=== PATIENT | male | born 1935 | race Caucasian/White ===

== ENCOUNTER 2020-12-11 21:07 | Emergency (ER) | payer MEDICARE, SELFPAY ==
--- NOTE | ~2020-12-11 | XR_ITS ---
XR chest 1V 12/11/2020 22:52 Indication: Dyspnea. Status post fall. Procedure: AP view of the chest Comparison: 10/24/2016 Findings: Left basilar airspace disease. Small left pleural effusion. Right lung clear. No pneumothor ax. No acute osseous abnormality. Impression: 1: Left basilar airspace disease which may represent atelectasis or pneumonia. Reviewed, dictated and finalized at location A. Impression: 1: Left basilar airspace disease which may represent atelectasis or pneumonia.
--- NOTE | ~2020-12-11 | XR_ITS ---
XR thoracic spine 3V 12/11/2020 22:52 Indication: Status post fall. Back pain. Procedure: 3 views of the thoracic spine Comparison: CT dated 12/11/2020. Findings: There is mild dextrocurvature of the thoracic spine. Vertebral body heights are maintained. No fracture, subluxation or dislocation. No paraspinal soft tissue abnormality. Impression: 1: No acute fracture. Reviewed, dictated and finalized at location A. Impression: 1: No acute fracture.
--- NOTE | ~2020-12-11 | CT_ITS ---
EXAMINATION: CT cervical spine wo con DATE: 12/11/2020 23:02 INDICATION: Neck pain after fall TECHNIQUE: Computed tomography (CT) of the cervical spine was performed without intravenous contrast. The dose-length product was 475 mGy-cm. Automated exposure control and iterative reconstruction tech nique were employed. COMPARISON: None FINDINGS: There is degenerative disc disease at C3-4, C4-5, C5-6 and C6-7. There is degenerative retr olisthesis at C3-4 with degenerative anterolisthesis at C7-T1. There is moderate-severe multilevel un cinate and to a lesser degree facet degenerative change. Odontoid process within normal limits. Crani overtebral junction within normal limits. There is carotid atherosclerosis. Lung apices are normal. N o significant paraspinal soft tissue abnormality. No evidence for perched facet. IMPRESSION: 1. No acute abnormality of the cervical spine. 2: Severe cervical spondylosis. Reviewed, dictated and finalized at location A.
--- NOTE | ~2020-12-11 | CT_ITS ---
EXAMINATION: CT brain wo con DATE: 12/11/2020 23:02 INDICATION: Status post fall. Headache. TECHNIQUE: Computed tomography (CT) of the head was performed without intravenous contrast. The dose- length product was 605.33 mGy-cm. Automated exposure control and iterative reconstruction technique w ere employed. COMPARISON: CT dated 01/02/2016 FINDINGS: Mild generalized atrophy. There are scattered mild periventricular and subcortical white ma tter changes, most likely related to small vessel ischemic disease (microangiopathy). There is intrac ranial atherosclerosis. No acute intracranial hemorrhage, infarction, mass or mass effect. Mild mucos al thickening of the left frontal sinus. Mastoids are pneumatized. No depressed skull fractures. Midl ine sagittal images are unremarkable. IMPRESSION: 1. No acute intracranial abnormality. 2: Chronic age-related findings. Reviewed, dictated and finalized at location A.
--- NOTE | ~2020-12-11 | CT_ITS ---
EXAMINATION: CT lumbar spine wo con DATE: 12/11/2020 23:03 INDICATION: Low back pain after fall TECHNIQUE: Computed tomography (CT) of the lumbar spine was performed without intravenous contrast. Kimi fernandez dose-length product was 1311.65 mGy-cm. Automated exposure control and iterative reconstruction te aniceto were employed. COMPARISON: None FINDINGS: There are surgical changes consistent with fusion at L4-5. There is degenerative disc disea se at L2-3, L3-4 and L5-S1. There is an acute superior endplate compression fracture of L1 with appro ximately 15% loss of vertebral body height. There is levoscoliosis of the lumbar spine. There is athe rosclerosis of the aorta. Lung bases unremarkable. IMPRESSION: 1. Acute superior endplate compression fracture of L1 with approximately 15% loss of vertebral body h eight. 2: Moderate lumbar spondylosis with fusion at L4-5. Reviewed, dictated and finalized at location A. IMPRESSION: 1. Acute superior endplate compression fracture of L1 with approximately 15% lo ss of vertebral body height. 2: Moderate lumbar spondylosis with fusion at L4-5.
[2020-12-11 21:10] VITALS: PULSE 59; RESP 22; TEMP 36.7
[2020-12-11] MEDS: MORPHINE SULFATE (*CRX) 2 MG/ML INJ IV PUSH (21:54)
[2020-12-11 22:06] LABS: Basophils Percent Auto 0.6 % (0.2-1.2); Eosinophils Absolute Auto 0.1 K/mm3 (0-0.3); Eosinophils Percent Auto 1.9 % (0-4.4); Hematocrit 42.9 % (42.0-52.0); Hemoglobin 13.6 g/dL (14.0-18.0); Immature Granulocyte Absolute 0.21 K/mm3 (0.00-0.031); Lymphocytes Absolute Auto 1.21 K/mm3 (0.9-3.2); Mean Corpuscular HGB Conc 31.7 g/dl (32-36); Mean Corpuscular Hemoglobin 30.4 pg (26-34); Mean Platelet Volume 10.4 fl (7.4-10.4); Monocytes Absolute Auto 0.3 K/mm3 (0.1-0.6); Monocytes Percent Auto 4.7 % (2.6-8.5); Neutrophils Absolute Auto 3.5 K/mm3 (1.3-6.7); Neutrophils Percent Auto 65.8 % (45.5-73.1); Platelet Count Result 161 k/mm3 (150-375); Red Blood Count 4.47 M/mm3 (4.6-6.20); Red Cell Distribution Width 13.8 % (11.5-14.5); White Blood Count 5.3 K/mm3 (4.5-10.0)
[2020-12-11 22:14] VITALS: BP 179/81; PULSE 63; RESP 16; O2SAT 97
[2020-12-11 22:27] LABS: Ethanol 45 mg/dL (<10)
[2020-12-11 22:40] LABS: Alanine Aminotransferase 17 U/L (4-50); Albumin Level 3.9 g/dL (3.5-5.1); Alkaline Phosphatase 58 U/L (38-126); Anion Gap 4 mmol/L (8-16); Aspartate Amino Transferase 55 U/L (17-59); Bilirubin,Total 0.9 mg/dL (0.2-1.3); Blood Urea Nitrogen 27 mg/dL (9-20); Calcium 8.9 mg/dL (8.4-10.2); Carbon Dioxide 31 mmol/L (22-30); Chloride 106 mmol/L (98-107); Estimated CRCL calculation 48 ml/min; Estimated Glomerular Filt Rate 58; Glucose 89 mg/dL (75-110); Potassium 4.5 mmol/L (3.4-5.0); Sodium 141 mmol/L (137-145)
[2020-12-11 22:51] LABS: Troponin I < 0.012 ng/mL (0.000-0.034)
[2020-12-11 23:10] VITALS: BP 165/77; PULSE 65; RESP 16; O2SAT 99
--- NOTE | 2020-12-11 23:51 | ED.FALL ---
HPI - Fall General Chief Complaint: Fall Stated Complaint: fall Time Seen by Provider: 12/11/20 21:16 Source: patient, family, EMS and RN notes reviewed Mode of arrival: EMS Limitations: no limitations History of Present Illness HPI Narrative: Patient is 85 years old white male came to the emergency room by ambulance because of a fall. Patient had some alcohol on board, was in a friend's house, stepping down a step lost his balance and fell down on muddy ground 6 to 7 feet above the ground. Patient denies any loss of consciousness, head or neck injury, complaining of lower back pain. Patient does not take aspirin or any anticoagulant medication. Patient also denies any chest or abdominal pain. MD complaint: fall Related Data Allergies Allergy/AdvReac Type Severity Reaction Status Date / Time ciprofloxacin Allergy Intermediate FACIAL Verified 12/11/20 22:09 SWELLING AND HIVES shellfish derived Allergy Intermediate HIVES AND Verified 12/11/20 22:09 FACIAL SWELLING iodine Allergy Unknown Swelling Verified 12/11/20 22:09 Sulfa (Sulfonamide Allergy Unknown Unknown Verified 12/11/20 22:09 Antibiotics) codeine AdvReac Unknown HIVES AND Verified 12/11/20 22:09 NAUSEA Review of Systems Review of Systems: Narrative: CONSTITUTIONAL: Denies fever, chills, or sweats. EYES: Denies visual changes, redness, or discharge. ENT: Denies rhinorrhea, congestion, sore throat, or otalgia. CARDIOVASCULAR: Denies chest pain, palpitations, or edema. RESPIRATORY: Denies cough or dyspnea. GASTROINTESTINAL: Denies abdominal pain, nausea, vomiting, or diarrhea. GENITOURINARY: Denies dysuria or hematuria. SKIN: Denies rash or itching. MUSCULOSKELETAL: Denies back pain, joint pain, or myalgia. NEUROLOGIC: Denies headache, numbness, or weakness. PSYCHIATRIC: Denies anxiety or depression. [facility] Past Medical History Medical History CKD (chronic kidney disease) Erectile dysfunction Essential tremor Hypothyroidism Lumbar disc disease Family History Family History Mother Patient's mother is , Onset Age: 100 Father Patient's father is Family history of cardiovascular disease Acute myocardial infarction, Onset Age: 57 Sibling Patient's brother is in good health Social History Social History Second hand tobacco smoke exposure: No Smoking end date: 06/05/1965 Alcohol intake: current Exam Narrative: Exam Narrative: General appearance: Well-developed, well-nourished Skin: Normal color Head: Normocephalic, nontraumatic Eyes: Clear conjunctiva ENT: Oropharynx normal, ears normal, nose normal Neck: Supple, nontender Chest and respiratory: Airway patent, no respiratory distress, no accessory muscle use Heart: Regular rate/rhythm Abdomen: Soft, nontender, no organomegaly, quiet bowel sounds Vascular: Normal peripheral pulses, normal capillary refill. Musculoskeletal: Diffuse pain across the lumbar area, no bruises, no swelling, limited range of motion. Neurologic: Alert and oriented ?3, BUSINESS OFFICE COORDINATOR is normal as tested, no gross motor deficit Course Course Emergency Course: Stable Vital Signs Vital signs: Vital Signs Temperature 36.7 C 12/11/20 21:10 Pulse Rate 59 L 12/11/20 21:10 Respiratory Rate 22 H 12/11/20 21:10 Temperature 36.7 C 12/11/20 21:10 Pulse Rate 65 12/11/20 23:10 Respiratory Rate 16 12/11/20 23:10 Blood Pressure 165/77 H 12/11/20 23:10 Pulse Oximetry 99 12/11/20 23:10 MDM - Fall MDM Narrative Med
[2020-12-12] MEDS: MORPHINE SULFATE (*CRX) 2 MG/ML INJ IV PUSH (00:25)
[2020-12-12] MEDS: ONDANSETRON INJ 4 MG/2 ML VIAL IV PUSH (00:25)
[2020-12-12 00:41] VITALS: BP 170/70; PULSE 70; O2SAT 100
== END 2020-12-12 00:34 | disposition home or self-care (01) ==
PROVIDERS: Emergency Provider Emergency Medicine; PCP Family Medicine
DX: S32.018A Other fracture of first lumbar vertebra, initial encounter for closed fracture (principal); N18.9 Chronic kidney disease, unspecified; E03.9 Hypothyroidism, unspecified; Z87.891 Personal history of nicotine dependence; M47.812 Spondylosis without myelopathy or radiculopathy, cervical region; M47.816 Spondylosis without myelopathy or radiculopathy, lumbar region; R91.8 Other nonspecific abnormal finding of lung field; W10.9XXA Fall (on) (from) unspecified stairs and steps, initial encounter
CPT/HCPCS: 36415; 70450; 71045; 72072; 72125; 72131; 80053; 80307; 84484; 85025; 96374; 96375; 99284; J2270; J2405

== ENCOUNTER 2022-03-04 17:51 | Emergency (ER) | payer MEDICARE, SELFPAY ==
[2022-03-04] VITALS (14 sets, daily range): BP systolic 129–188; BP diastolic 66–79; PULSE 44–75; RESP 12–23; TEMP 36.6–36.8; O2SAT 98–100
--- NOTE | ~2022-03-04 | XR_ITS ---
EXAMINATION: XR chest 2V DATE: 03/04/2022 19:51 INDICATION: Cough. TECHNIQUE: Frontal and lateral views of the chest were obtained. COMPARISON: Chest single view 12/11/2020, chest CT 05/16/2017 FINDINGS: There is no pneumonia, pleural effusion, or pneumothorax. The heart size is normal. There a re prominent paracardial fat pads. There is mild chronic anterior wedging of a midthoracic vertebral body. IMPRESSION: 1. No acute cardiopulmonary disease. Reviewed, dictated and finalized at location A.
--- NOTE | 2022-03-04 19:33 | ECG_ITS ---
Measurements Intervals [place] Rate: 49 P: 44 AL: 170 QRS: 2 QRSD: 118 T: 23 QT: 412 QTc: 373 Interpretive Statements SINUS BRADYCARDIA ATRIAL PREMATURE COMPLEX LOW QRS VOLTAGE IN PRECORDIAL LEADS MINIMAL Q WAVES- ANTERIOR LEADS CONSIDER INFERIOR INFARCT, AGE INDETERMINATE BORDERLINE T WAVE ABNORMALITY- ANTERIOR LEADS BASELINE ARTIFACT- I, II, III, AVL, AVF, V1-V6 ABNORMAL ECG NO PREVIOUS ECG AVAILABLE FOR COMPARISON Electronically Signed On 03-04-2022 21:46:59 CDT by Bobby Smiley D.O.
[2022-03-04 19:59] LABS: Basophils Percent Auto 0.4 % (0.2-1.2); Eosinophils Absolute Auto 0.1 K/mm3 (0-0.3); Eosinophils Percent Auto 2.3 % (0-4.4); Hematocrit 40.6 % (42.0-52.0); Hemoglobin 13.2 g/dL (14.0-18.0); Immature Granulocyte Absolute 0.03 K/mm3 (0.00-0.031); Immature Granulocyte Percent A 0.6 % (0-0.5); Lymphocytes Absolute Auto 1.37 K/mm3 (0.9-3.2); Lymphocytes Percent Auto 28.5 % (18.3-44.2); Mean Corpuscular HGB Conc 32.5 g/dl (32-36); Mean Corpuscular Hemoglobin 31.1 pg (26-34); Mean Corpuscular Volume 95.8 fl (80-100); Mean Platelet Volume 9.8 fl (7.4-10.4); Monocytes Absolute Auto 0.5 K/mm3 (0.1-0.6); Monocytes Percent Auto 9.8 % (2.6-8.5); Neutrophils Absolute Auto 2.8 K/mm3 (1.3-6.7); Neutrophils Percent Auto 58.4 % (45.5-73.1); Platelet Count Result 171 k/mm3 (150-375); Red Blood Count 4.24 M/mm3 (4.6-6.20); White Blood Count 4.8 K/mm3 (4.5-10.0)
--- NOTE | 2022-03-04 20:14 | ED.URI ---
HPI - URI/Sore Throat General Chief Complaint: Upper Respiratory Infection Stated Complaint: HTN Time Seen by Provider: 03/04/22 18:57 Source: patient, RN notes reviewed and old records reviewed Mode of arrival: ambulatory Limitations: no limitations History of Present Illness HPI Narrative: This is an 86 year old male with history of hypertension , CAD with stent who presents for evaluation of possible pneumonia. He developed cold symptoms on Monday when he was in [facility]. He states his brother was sick with similar symptoms as well and he was diagnosed with pneumonia. His cough is improving but he is concerned about pneumonia. He had joint pain with his cold symptoms but that has resolved. He denies nausea, vomiting, shortness of breath, leg swelling or diarrhea. He does having intermittent right lower rib pain. Denies history of DVT. He went to urgent care today for evaluation of pneumonia but he was told to come to ER because his systolic BP was 200s. He denies dizziness or headache. He is also bradycardic and he states this normal due to him taking propanolol Related Data Allergies Allergy/AdvReac Type Severity Reaction Status Date / Time ciprofloxacin Allergy Intermediate FACIAL Verified 11/22/21 08:54 SWELLING AND HIVES shellfish derived Allergy Intermediate HIVES AND Verified 11/22/21 08:54 FACIAL SWELLING iodine Allergy Unknown Swelling Verified 11/22/21 08:54 Sulfa (Sulfonamide Allergy Unknown Unknown Verified 11/22/21 08:54 Antibiotics) codeine AdvReac Unknown HIVES AND Verified 11/22/21 08:54 NAUSEA Review of Systems Review of Systems: All systems reviewed & are unremarkable except as noted in HPI and below Constitutional: Constitutional: Denies chills, Denies fatigue and Denies fever(s) ENT: Reports nasal congestion and Denies sore throat Cardiovascular: Cardiovascular: Denies chest pain and Denies radiating jaw, neck or arm pain Respiratory: Respiratory: Reports chest congestion, Reports cough and Denies dyspnea Musculoskeletal: Musculoskeletal: Reports myalgias and Reports arthralgias Neurologic: Denies headache(s) [facility] Past Medical History Medical History CKD (chronic kidney disease) Closed compression fracture of lumbar vertebra Erectile dysfunction Essential tremor Hypothyroidism Lumbar disc disease Family History Family History Mother Patient's mother is , Onset Age: 100 Father Patient's father is Family history of cardiovascular disease Acute myocardial infarction, Onset Age: 57 Sibling Patient's brother is in good health Social History Social History Smoking status: Former smoker Second hand tobacco smoke exposure: No Smoking end date: 06/05/1965 Alcohol intake: current Exam Const: General: no acute distress and alert Nutritional Appearance: well nourished Orientation/consciousness: patient oriented x3 HENMT: Head: normal to inspection Eyes: EOM: EOMs intact bilaterally Chest: Chest palpation & inspection: normal inspection of the chest Resp: Effort & Inspection: normal respiratory effort Auscultation: clear to auscultation bilaterally Cardio: Rate: regular rate Rhythm: regular rhythm Heart sounds: no murmurs GI: GI Palp: Yes Soft to palpation, No Tenderness to palpation present (GI) and No Guarding due to palpation present (GI) Auscultation: normal bowel sounds Back/Spine/Pelvis: Back: no CVA tenderness Skin: General skin exam: normal color Rashes: no rashes Wounds: no wounds Neuro: General: patient oriented x3, moves all extremities and CN's II-XI intact bilaterally Extrem: General: normal to inspection Psych: Mental Status: mental status grossly normal Affect: normal affect Attitude: cooperati
[2022-03-04 20:15] LABS: Alanine Aminotransferase 15 U/L (6-50); Alkaline Phosphatase 67 U/L (38-126); Anion Gap 8 mmol/L (8-16); Aspartate Amino Transferase 37 U/L (17-59); Blood Urea Nitrogen 26 mg/dL (9-20); Carbon Dioxide 28 mmol/L (22-30); Chloride 104 mmol/L (98-107); Estimated Glomerular Filt Rate > 60; Glucose 100 mg/dL (65-110); Potassium 4.5 mmol/L (3.4-5.0); Prothrombin Time 13.1 Seconds (11.1-14.7); Sodium 140 mmol/L (137-145)
[2022-03-04 20:16] LABS: Partial Thromboplastin Time 30.6 SECONDS (22.3-36.8)
[2022-03-04 20:22] LABS: D Dimer 0.53 ug/mL (<0.48)
[2022-03-04 20:36] LABS: Influenza A QL RT-PCR Negative (Negative); Influenza B QL RT-PCR Negative (Negative); SARS-CoV-2 RNA PCR Positive
== END 2022-03-04 21:46 | disposition home or self-care (01) ==
PROVIDERS: Emergency Provider General Practice; PCP Family Medicine
DX: U07.1 COVID-19 (principal); I12.9 Hypertensive chronic kidney disease with stage 1 through stage 4 chronic kidney disease, or unspecified chronic kidney disease; N18.9 Chronic kidney disease, unspecified; E03.9 Hypothyroidism, unspecified; I25.10 Atherosclerotic heart disease of native coronary artery without angina pectoris; Z95.5 Presence of coronary angioplasty implant and graft; Z87.891 Personal history of nicotine dependence; I49.1 Atrial premature depolarization; R94.31 Abnormal electrocardiogram [ECG] [EKG]
CPT/HCPCS: 36415; 71046; 80053; 85025; 85380; 85610; 85730; 87502; 93005; 99283; C9803; U0003; U0005

== ENCOUNTER 2023-01-16 08:45 | Outpatient (CLI) | payer MEDICARE, SELFPAY ==
[2023-01-16 13:06] LABS: Hematocrit 41.7 % (42.0-52.0); Hemoglobin 13.1 g/dL (14.0-18.0); Mean Corpuscular HGB Conc 31.4 g/dl (32-36); Mean Corpuscular Hemoglobin 30.5 pg (26-34); Mean Corpuscular Volume 97.2 fl (80-100); Mean Platelet Volume 10.2 fl (7.4-10.4); Platelet Count Result 181 k/mm3 (150-375); Red Blood Count 4.29 M/mm3 (4.6-6.20); Red Cell Distribution Width 13.7 % (11.5-14.5); White Blood Count 5.1 K/mm3 (4.5-10.0)
[2023-01-16 13:15] LABS: Alanine Aminotransferase 19 U/L (6-50); Albumin Level 3.9 g/dL (3.5-5.1); Alkaline Phosphatase 58 U/L (38-126); Anion Gap 5 mmol/L (8-16); Aspartate Amino Transferase 37 U/L (17-59); Bilirubin,Total 1.1 mg/dL (0.2-1.3); Blood Urea Nitrogen 22 mg/dL (9-20); Calcium 8.7 mg/dL (8.4-10.2); Carbon Dioxide 31 mmol/L (22-30); Chloride 101 mmol/L (98-107); Cholesterol 148 mg/dL (0-200); Estimated Glomerular Filt Rate 58; Glucose 85 mg/dL (65-110); HDL Direct 48 mg/dL; Potassium 4.2 mmol/L (3.4-5.0); Sodium 137 mmol/L (137-145); Triglycerides 81 mg/dL (<150)
[2023-01-16 13:26] LABS: LDL Cholesterol Direct 80 mg/dL
[2023-01-16 13:56] LABS: Hemoglobin A1C 5.5 % (<5.7)
== END 2023-01-16 08:46 | disposition home or self-care (01) ==
PROVIDERS: PCP Family Medicine; Visit Provider Nurse Practitioner
DX: Z13.6 Encounter for screening for cardiovascular disorders (principal); R73.03 Prediabetes; Z13.1 Encounter for screening for diabetes mellitus; N18.9 Chronic kidney disease, unspecified; Z13.29 Encounter for screening for other suspected endocrine disorder; E03.9 Hypothyroidism, unspecified
CPT/HCPCS: 36415; 80053; 80061; 83036; 84443; 85027

== ENCOUNTER 2024-03-29 10:08 | Outpatient (CLI) | payer MEDICARE, SELFPAY ==
[2024-03-29 16:43] LABS: Basophils Percent Auto 0.6 % (0.2-1.2); Eosinophils Absolute Auto 0.1 K/mm3 (0-0.3); Eosinophils Percent Auto 2.5 % (0-4.4); Hematocrit 42.8 % (42.0-52.0); Hemoglobin 13.4 g/dL (14.0-18.0); Immature Granulocyte Absolute 0.01 K/mm3 (0.00-0.031); Immature Granulocyte Percent A 0.2 % (0-0.5); Lymphocytes Percent Auto 28.8 % (18.3-44.2); Mean Corpuscular HGB Conc 31.3 g/dl (32-36); Mean Corpuscular Hemoglobin 31.1 pg (26-34); Mean Corpuscular Volume 99.3 fl (80-100); Mean Platelet Volume 10.4 fl (7.4-10.4); Monocytes Absolute Auto 0.5 K/mm3 (0.1-0.6); Monocytes Percent Auto 9.7 % (2.6-8.5); Neutrophils Absolute Auto 2.8 K/mm3 (1.3-6.7); Neutrophils Percent Auto 58.2 % (45.5-73.1); Platelet Count Result 179 k/mm3 (150-375); Red Blood Count 4.31 M/mm3 (4.6-6.20); Red Cell Distribution Width 13.6 % (11.5-14.5); White Blood Count 4.9 K/mm3 (4.5-10.0)
[2024-03-29 17:17] LABS: Alanine Aminotransferase 14 U/L (6-50); Albumin Level 4.1 g/dL (3.5-5.1); Alkaline Phosphatase 56 U/L (38-126); Anion Gap 9 mmol/L (4-12); Aspartate Amino Transferase 41 U/L (17-59); Bilirubin,Total 0.9 mg/dL (0.2-1.3); Blood Urea Nitrogen 27 mg/dL (9-20); Calcium 8.8 mg/dL (8.4-10.2); Carbon Dioxide 31 mmol/L (22-30); Chloride 101 mmol/L (98-107); Cholesterol 148 mg/dL (0-200); Estimated Glomerular Filt Rate 57; Glucose 97 mg/dL (65-110); HDL Direct 53 mg/dL; Potassium 4.4 mmol/L (3.4-5.0); Sodium 141 mmol/L (137-145); Triglycerides 120 mg/dL (<150)
[2024-03-29 17:32] LABS: LDL Cholesterol Direct 65 mg/dL
[2024-03-29 17:51] LABS: Hemoglobin A1C 5.6 % (<5.7)
== END 2024-03-29 10:09 | disposition home or self-care (01) ==
LOC: ANHGOSHLAB 10:09
PROVIDERS: PCP Family Medicine; Visit Provider Family Medicine
DX: R73.03 Prediabetes (principal); I10 Essential (primary) hypertension; E03.9 Hypothyroidism, unspecified; R78.5 Finding of other psychotropic drug in blood
CPT/HCPCS: 36415; 80053; 80061; 83036; 84443; 85025

== ENCOUNTER 2024-09-26 15:23 | Outpatient (CLI) | payer MEDICARE, SELFPAY ==
--- OUTSIDE RECORDS SUMMARY | 2024-09-26 16:40 | XMS_ITS | Clinical Summary ---
Author Organization [facility] Address [address] [place] [address] Care Team Providers Care Senior Sales Representative Name Role Phone Ying Banerjee MD Unavailable [phone] Sedrick Lynch MD Primary Care Provider [phone] Source Comments [facility],non-owned Affiliates and Associated Physician Practices is amultiple site organization consisting of ambulatory clinics and hospital sitesin [place], [place], [place] and [place]. This disclosure is being madepursuant to the Care Everywhere program and may not contain all information available regarding this patient. Last updated 18.[facility] Allergies Active Allergy Reactions Criticality Noted Date Comments Codeine 05/25/2011 Medications * Be aware that medications may not be up to date on this document. Alwaysverify current medications with the patient. ezetimibe-simvas tatin (VYTORIN) 10-40 MG tablet Acti ve aspirin 325 MG tablet Active tamsulosin CR 24hr (FLOMAX) 0.4 MG capsule Activ e LISINOPRIL PO Active ATENOLOL PO Active levETIRAcetam (KEPPRA) 500 MG tablet Take 1 Tab by mouth 2 times daily. 60 Tab 2 08/26/2011 Active LORazepam (ATIVAN) 0.5 MG tablet Take 1 Tab by mouth every 8 hours as needed for Anxiety. 30 Tab 1 08/26/2011 Active diclofenac sodium (VOLTAREN) 75 MG tablet Take 1 Tab by mouth 2 times daily. 60 Tab 5 10/13/2011 Active Active Problems Problem Noted Date Diagnosed Date Degeneration of lumbar or lumbosacral interverte bral disc 05/25/2011 Family History Relation Name Status Comments Brother Alive healthy Daughter Alive healthy Father (Age 57) heart anahi ck Mother Alive 98 yrs old has final satge of dimentia Son Alive x3 healthy Social History Tobacco Use Types Packs/Day Years Used Date Smoking Tobacco: Never Smokeless Tobacco: Never Alcohol Use Standard Drinks/Week Comments Yes 0 (1 standard drink = 0.6 oz pur e alcohol) sometimes Sex and Gender Information Value Date Recorded Sex Assigned at Not on file Legal Sex Male 8:02 AM LETTUCE TRIMMER Gender Identity Not on file Sexual Orientation Not on file Last Filed Vital Signs Vital Sign Reading Time Taken Comments Blood Pressure 103/70 08/26/2011 9:06 AM CDT Pulse 56 07/29/2011 9:04 AM LETTUCE TRIMMER Temperature - - Respiratory Rate - - Oxygen Saturation - - Inhaled Oxygen Concentration - - Weight 84.4 kg (186 lb) 08/26/2011 9:06 AM CDT Height 188 cm (6' 2 ) 08/26/2011 9:06 AM CDT Body Mass Index 23.88 08/26/2011 9:06 AM CDT Plan of Treatment Health Maintenance Due Date Last Done Comments DTAP/TDAP/TD VACCINES (1 - Tdap) 1954 PNEUMOCOCCAL VACCINE 50+ (1 of 1 - PCV) 1987 ZOSTER VACCINE (1 of 2) 1987 Respiratory Syncytial Virus (RSV) Vaccine Pt: or over 60 yrs (1 - 1-dose 75+ series) 2012 COVID-19 VACCINE ( - 2023-2 5 season) 2024 DEPRESSION SCREENING 06/05/2024 MEDICARE AWV CALENDAR YEAR 2024 INFLUENZA VACCINE (Season Ended) 2025 HEPATITIS B VACCINE Aged Out No longe r eligible based on patient's age to complete this topic HIB VACCINE Aged Out No longer eligi ble based on patient's age to complete this topic HPV VACCINE Aged Out No longer eligi ble based on patient's age to complete this topic MENINGOCOCCAL (Group B) VACC INE SHARED DECISION-MAKING Aged Out No longer eligibl e based on patient's age to complete this topic MENINGOCOCCAL GROUPS A/C/Y/W VACCINE Aged Out No longer eligible b ased on patient's age to complete this topic Insurance [facility] [facility] MEDICARE ADV [facility] MEDICARE ADV Care Teams Senior Sales Representative Relationship Specialty Start Date End Date Sedrick Lynch MD [address] [place] [address] PCP - General 06/12/18 Ying Banerjee MD [address] [address] Neurology 08/26/11
--- OUTSIDE RECORDS SUMMARY | 2024-09-26 16:40 | XMS_ITS | Clinical Summary ---
Author Organization [facility] [address] Address [address] [place] [address] Care Team Providers Care Registered Nurse Behavioral Health Name Role Phone Vipul Morgan MD Primary Care Provider [phone] Allergies Active Allergy Reactions Criticality Noted Date Comments Ciprofloxacin Swelling Medium Codeine Hives,Nausea & Vomiting Medium 05/25/2011 Shellfish Derived Swelling Medium Medications propranolol (INDERAL) 80 mg tabletIndicatio ns:for tremors and bp medication Take 1 tablet (80 mg total) by mouth daily Active levothyroxine sodium (TIROSINT) 50 mcg capsuleIndicati ons:thyroid Take 1 capsule (50 mcg total) by mouth daily Active ezetimibe-simva statin (VYTORIN) 10-40 mg per tabletIndicatio ns:cholestrol Take 1 tablet by mouth nightly Active naproxen (ALEVE) 220 mg tablet Take by mouth 2 (two) times a day with meals Active irbesartan (AVAPRO) 150 mg tablet Take 1 tablet (150 mg total) by mouth daily 2 Active nitroglycerin (NITROSTAT) 0.[address] 1 tablet (0.4 mg total) under the tongue every 5 (five) minutes as needed for chest pain May repeat dose q 5 min, up to 3 doses total 30 tablet 2 3 Active cyclobenzaprine (FLEXERIL) 5 mg tablet Take 1 tablet (5 mg total) by mouth 3 (three) times a day as needed for muscle spasms 30 tablet 3 09/10/19 25 Discontinu ed(Therapy completed) Active Problems Problem Noted Date Diagnosed Date Angina pectoris, unspecified 06/21/2022 Closed wedge compression fra cture of L1 vertebra with routine healing 12/21/2020 Sensorineural hearing loss, bilateral 02/19/2018 Spinal stenosis of lumbar re gion with neurogenic claudication 09/25/2017 Coronary artery disease invo lving [place] coronary artery of [place] heart without angina pectoris 03/28/2017 History of coronary artery stent placement 03/28 Dizziness 08/15/2016 Hearing loss 10/22/2014 Impacted cerumen 04/05/2013 Degeneration of lumbar or lumbosacral interverte bral disc 05/25/2011 Resolved Problems Problem Noted Date Diagnosed Date Resolved Date History of coronary artery stent placement 04/03/2018 04/25/2019 Encounters Date Type Department Care Team Description 09/09/2024 8:30 AM CDT Office Visit [facility] Cardiology [address] [place] [address] Vipul Lucero MD History of coronary artery stent placement (Primary Dx) 09/04/2024 10:30 AM CDT Office Visit [facility] Movement Disorders [address] [place] [address] Advanced Medicine 7th [place] [address] Hank Macias MD Tremor 09/04/2024 Documentation [facility] Movement Disorders [facility] Medicine [facility] [place] [address] [place] Frost, [facility] DBS/FUS Packet from Last 3 Months Immunizations Immunization Administration Dates Next Due Influenza, Quadrivalent, Hig h Dose, Preservative Free, Intrr 02/23/2022,03/31/2020 Influenza, Quadrivalent, Rec ombinant, Egg Free, Preservative Free, Intramuscular 06/01/2021 Influenza, Quadrivalent, Split, Intramuscular Influenza, Trivalent, High D ose, Split, Preservative Free, Intramuscular 04/23/2018 Pneumococcal Conjugate PCV 13 05/25/2018 Pneumococcal, Unspecified 06/05/2016 TD Preservative Free 12/04/2011 Tdap 01/02/2016 Surgical History Surgery Date Site/Laterality Comments MICRODISCECTOMY LUMBAR 2006, 2008 Medical History Medical History Date Comments Hx Other Medical dyslipidemia Lumbar stenosis BPH (benign prostatic hyperplasia) Tremor Social History Tobacco Use Types Packs/Day Years Used Date Smoking Tobacco: Former Smokeless Tobacco: Never Tobacco Cessation:Counseling Given: Not Answered Comments:smoked for four years Alcohol Use Standard Drinks/Week Comments Yes 5 (1 standard drink = 0.6 oz pur e alcohol) AUDIT-C Answer Date Recorded Q1: How often do you have a drink containing alc ohol? 2-3 times a week 10/10/2022 Q2: How many drinks containi ng alcohol do you have on a typical day when you are drinking? 1 or 2 10/10/2022 Q3: How often do you have si x or more drinks on one occasion? Never 10/10/2022 Sex and Gender Information Value Date Recorded Sex Assigned at Not on file Legal Sex Male 8:40 AM BUSINESS OFFICE ASSOCIATE Gender Identity Not on file Sexual Orientation Not on file Obstetrics History Last Filed Vital Signs Vital Sign Reading Time Taken Comments Blood Pressure 118/60 09/09/2024 8:08 AM CDT Pulse 46 09/09/2024 8:08 AM CDT Temperature 36.7 C (98.1 F) 11/22/2017 11:41 AM CDT Respiratory Rate 20 03/04/2022 5:12 PM CDT Oxygen Saturation 98% 09/09/2024 8:08 AM CDT Inhaled Oxygen Concentration - - Weight 88.1 kg (194 lb 4.8 oz) 09/09/2024 8:08 A M CDT Height 188 cm (6' 2 ) 09/09/2024 8:08 AM CDT Body Mass Index 24.95 09/09/2024 8:08 AM CDT Plan of Treatment Health Maintenance Due Date Last Done Comments Depression Screening 1935 Fall Risk Assessment 1935 Hepatitis B Screening 1955 Zoster Vaccine (1 of 2) 1987 Well Visit 65+ 2002 Pneumococcal vaccine 65+ (2 of 2 - PPSV23) 05/25/2019 05/25/2018, 06/05/2016 Covid-19 Vaccine (2023-2 5 season) 2024 02/23/2022, 12/01/2021, 02/27/2021, Additional history exists Influenza Vaccine (Season Ended) 2025 02/23/2022, 06/01/2021, 03/31/2020, Additional history exists DTaP/Tdap/Td Vaccine (2 - Td or Tdap) 01/01/2026 01/02/2016, 12/04/2011 Medical Devices Implanted Type Area Biometrics Technician Device Identifier Shelf Expiration Date Model / Serial / Lot [employer] [id number] Acupac Allograft Frozen Graft 25cc Bone Cancellous - [id number] - [id number] Implanted:Qty: 1 on 11/21/2017 by Nixon Castle MD at [facility] N/A: Spine Lumbar [employer] 09/06/2019 [id number] / [id number] / [employer] [id number] Creo 7.5mm 50mm Cannulated Modular Spine Screw Bone - [id number] Implanted:Qty: 4 on 11/21/2017 by Nixon Castle MD at [facility] N/A: Spine Lumbar [employer] [id number] / / Mis Nitrol Tulip Implanted:Qty: 4 on 11/21/2017 by Nixon Castle MD at [facility] N/A: Spine Lumbar [employer] [id number] / / Mis Locking Cap Implanted:Qty: 4 on 11/21/2017 by Nixon Castle MD at [facility] N/A: Spine Lumbar [employer] [id number] / / [employer] [id number] Creo Mis 5.5mm 50mm Curve Flex Spinal Titanium - [id number] Implanted:Qty: 2 on 11/21/2017 by Nixon Castle MD at [facility] N/A: Spine Lumbar [employer] [id number] / / [employer] 1124.1232 Altera [id number] 15d Spacer Spinal - [id number] Implanted:Qty: 1 on 11/21/2017 by Nixon Castle MD at [facility] N/A: Spine Lumbar [employer] 1124.1232 / / Insurance [employer] MEDICARE [employer] MEDICARE [employer] MEDICARE Advance Directives For more information, please contact: [phone] * Full Code (Latest Code Status on File) Date Activated Date Inactivated Comments 11/21/2017 5:51 PM 11/22/2017 7:37 PM Care Teams Registered Nurse Behavioral Health Relationship Specialty Start Date End Date Vipul Morgan MD PCP - General Family Medicine 10/18/22
--- OUTSIDE RECORDS SUMMARY | 2024-09-26 16:40 | XMS_ITS | Referral Summary ---
Author Organization [facility] [address] [place] [address] [address] [place] [address] Care Team Providers Care Special Shopper Name Role Phone Vipul Morgan MD Primary Care Provider [phone] Encounters Date Type Department Care Team Description 09/09/2024 8:30 AM CDT Office Visit [facility] Cardiology [address] [place] [address] Vipul Lucero MD History of coronary artery stent placement (Primary Dx) 09/04/2024 Documentation [facility] Movement Disorders [address] [place] [phone] [place] Frost, [facility] DBS/FUS Packet 09/04/2024 10:30 AM CDT Office Visit [facility] Movement Disorders [address] [place] [phone] Hank Macias MD Tremor from Last 3 Months Allergies Active Allergy Reactions Criticality Noted Date [...] claudication 09/25/2017 Coronary artery disease invo lving [place] coronary artery of [place] heart without angina pectoris 03/28/2017 History of coronary artery stent placement 03/28 Dizziness 08/15/2016 Hearing loss 10/22/2014 Impacted cerumen 04/05/2013 Degeneration of lumbar or lumbosacral interverte bral disc 05/25/2011 Resolved Problems Problem Noted Date Diagnosed Date Resolved Date History of coronary artery stent placement 04/03/2018 04/25/2019 Immunizations Immunization Administration Dates Next Due Influenza, Quadrivalent, Hig h Dose, Preservative Free, Intrr 02/23/2022,03/31/2020 Influenza, Quadrivalent, Rec ombinant, Egg Free, Preservative Free, Intramuscular 06/01/2021 Influenza, Quadrivalent, Split, Intramuscular Influenza, Trivalent, High D ose, Split, Preservative Free, Intramuscular 04/23/2018 Pneumococcal Conjugate PCV 13 05/25/2018 Pneumococcal, Unspecified 06/05/2016 TD Preservative Free 12/04/2011 Tdap 01/02/2016 Social History Tobacco Use Types Packs/Day Years [...] on file 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 Gender Identity Not on file Sexual Orientation [...] 09/09/2024 8:08 AM CDT Plan of Treatment Not on file Medical Devices Implanted Type Area Dock Pumper Device Identifier Shelf Expiration Date Model / Serial / Lot [employer] [id number] Acupac Allograft Frozen Graft 25cc Bone Cancellous - [id number] - [id number] Implanted:Qty: 1 on 11/21/2017 by Nixon Castle MD at [facility] N/A: Spine Lumbar [employer] 09/06/2019 [id number] / [id number] / [employer] [id number] Creo 7.5mm 50mm Cannulated Modular Spine Screw Bone - [id number] Implanted:Qty: 4 on 11/21/2017 by Nixon Castle MD at [facility] N/A: Spine Lumbar [employer] [id number] / / Mis Nitrol Tulip Implanted:Qty: 4 on 11/21/2017 by Nixon Castle MD at [facility] N/A: Spine Lumbar [employer] [id number] / / Mis Locking Cap Implanted:Qty: 4 on 11/21/2017 by Nixon Castle MD at [facility] N/A: Spine Lumbar [employer] [id number] / / [employer] [id number] Creo Mis 5.5mm 50mm Curve Flex Spinal Titanium - [id number] Implanted:Qty: 2 on 11/21/2017 by Nixon Castle MD at [facility] N/A: Spine Lumbar [employer] [id number] / / [employer] 1124.1232 Altera [id number] 15d Spacer Spinal - [id number] Implanted:Qty: 1 on 11/21/2017 by Nixon Castle MD at [facility] N/A: Spine Lumbar [employer] 1124.1232 / / Insurance [employer] MEDICARE AET[employer] MEDICARE [facility] MEDICARE Advance Directives For more information, please contact: [phone] * Full Code (Latest Code Status on File) Date Activated Date Inactivated Comments 11/21/2017 5:51 PM 11/22/2017 7:37 PM Care Teams Special Shopper Relationship Specialty Start Date End Date Vipul Morgan MD PCP - General Family Medicine 10/18/22
--- OUTSIDE RECORDS SUMMARY | 2024-09-26 16:40 | XMS_ITS | Encounter Summary ---
Author Organization [facility] Address [address] [place] [address] Care Team Providers Care Skiver Counter Name Role Phone Ying Banerjee MD Unavailable [phone] Sedrick Lynch MD Primary Care Provider [phone] Encounter Details Date Type Department Care Team (Late st Contact Info) Description 11/30/2022 Lab Requisition [facility] [address] [place] [address] Keo Cook MD [address] [place] [address] Social History Tobacco Use Types Packs/Day Years Used Date Smoking Tobacco: Never Smokeless Tobacco: Never Alcohol Use Standard Drinks/Week Comments Yes 0 (1 standard drink = 0.6 oz pur e alcohol) sometimes Sex and Gender Information Value Date Recorded Sex Assigned at Not on file 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 Gender Identity Not on file Sexual Orientation Not on file documented as of this encounter Plan of Treatment Not on file documented as of this encounter Procedures Procedure Name Priority Date/Time Associated Diagnosis Comments DERMATOPATHOLOGY Routine 11/29/2022 12:0 0 AM CDT documented in this encounter Results * DERMATOPATHOLOGY (11/29/2022 12:00 AM CDT) Case Report Dermatopathology Report Case: [id number] Authorizing Provider: Keo Cook MD Collected: 11/29/2022 12:00 AM Ordering Location: [facility] DermPath Lab Received: 11/30/2022 02:22 PM Pathologist: Christi Velazquez MD Specimens: A) - Skin, right cheek ant to right earlobe B) - Skin, top right shoulder 4:54 PM T DERMATOPATHOLOGY LABORATORY Final Diagnosis Specimen A. 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 The specimen consists of a shave biopsy measuring 13x6x1 mm. Jar 0. Specimen B: Received is one formalin filled container labeled with the patient's name and designated top right shoulder. The specimen consists of a shave biopsy measuring 71m05f7 mm. Jar 0. 4:54 PM T DERMATOPATHOLOGY LABORATORY Microscopic Description Specimen A. SKIN, right cheek ant to right earlobe: The epidermis shows parakeratosis, full thickness disorderly maturation of keratinocytes, mitoses at different levels, and dyskeratotic cells. In some foci, there is loss of cohesion between the neoplastic cells, as well as individual dyskeratotic cells that lack intercellular bridges. There is adjacent epidermal hyperplasia with disorderly maturation of keratinocytes with nuclear pleomorphism confined to the lower half of the epidermis. Specimen B. SKIN, top right shoulder: Within the dermis there are aggregates of basaloid cells with a high nuclear to cytoplasmic ratio and peripheral palisading. 4:54 PM CDT DERMATOPATHOLOGY LABORATORY Disclaimer An external and internal positive and negative controls are appropriate for the histochemical, immunohistochemical and immunofluorescence stain(s) in this case (if any), except where stated explicitly. The performance characteristics of the stain(s) cited in this report were developed and its performance characteristic determined by the Dermatopathology Laboratory at [facility], directed by Dr. Stephie Carlos. These tests need not be, and therefore are not, approved by the [place] Food and Drug Administration. The tests are used for clinical purposes. Billing Codes Specimen Charges Stain Charges 24927 46660 1 1 3 4:54 PM CDT DERMATOPATHOLOGY LABORATORY Embedded Images 3 4:54 PM CDT DERMATOPATHOLOGY LABORATORY Pathology/Cytology TISSUE SPECIMEN FROM SKIN / Unknown 11/29/2022 11/30/2022 2:22 PM CDT Miscellaneous samples (specimen) TISSUE SPECIMEN FROM SKIN / Unknown 11/29/2022 11/30/2022 2:22 PM CDT Keo Cook MD LAB - PATHOLOGY/CYTOLOGY ORD ERABLES Final Result DERMATOPATHOLOGY LABORATORY [facility] - Department of Dermatology [facility] Specialized Medicine [address] [place] [address], [address] [phone] documented in this encounter Visit Diagnoses Not on filedocumented in this encounter Care Teams Skiver Counter Relationship Specialty Start Date End Date Sedrick Lynch MD [address] [place] [address] PCP - General 06/12/18 [place] [address] [place] [address] Neurology 08/26/11 documented as of this encounter
[2024-09-26 20:04] LABS: Alanine Aminotransferase 15 U/L (6-50); Albumin Level 4.1 g/dL (3.5-5.1); Alkaline Phosphatase 59 U/L (38-126); Anion Gap 5 mmol/L (4-12); Aspartate Amino Transferase 34 U/L (17-59); Blood Urea Nitrogen 32 mg/dL (9-20); Calcium 9.2 mg/dL (8.4-10.2); Carbon Dioxide 32 mmol/L (22-30); Chloride 102 mmol/L (98-107); Estimated Glomerular Filt Rate 55; Glucose 93 mg/dL (65-110); Potassium 4.8 mmol/L (3.4-5.0); Sodium 139 mmol/L (137-145)
[2024-09-26 21:00] LABS: Hemoglobin A1C 5.6 % (<5.7)
== END 2024-09-26 15:24 | disposition home or self-care (01) ==
LOC: ANHGOSHLAB 15:24
PROVIDERS: PCP Family Medicine; Visit Provider Family Medicine
DX: E03.9 Hypothyroidism, unspecified (principal); R73.03 Prediabetes
CPT/HCPCS: 36415; 80053; 83036; 84443

== ENCOUNTER 2024-10-14 06:36 | Outpatient (CLI) | payer MEDICARE, SELFPAY ==
--- NOTE | ~2024-10-14 | MR_ITS ---
MRI of the lumbar spine Clinical History: L1 compression fracture Technique: Axial T2-weighted images, and sagittal T1-weighted, T2-weighted, and T2 fat-sat images wer e acquired. Findings: Moderate L1 compression fractures present, with loss of height but no marrow edema. There i s posterior and interbody fusion at L4-L5, bilateral rods and transpedicular screws, as well as disc fusion device. No acute fracture seen. No suspicious bone marrow signal abnormality. At L1-L2, there is moderate to advanced degenerative disc narrowing. There is advanced facet arthropa thy. There is mild to moderate central canal stenosis/thecal sac compression, especially on the left side. There is mild right neural foraminal narrowing. Left neural foramen preserved. At L2-L3, there is severe degenerative disc narrowing. Disc bulge and advanced facet arthropathy resu lt in severe spinal canal stenosis/thecal sac compression. There is moderate left neural foraminal na rrowing, and minimal right neural foraminal narrowing. At L3-L4, there is advanced degenerative disc narrowing. Disc bulge and severe facet arthropathy resu lt severe spinal canal stenosis/thecal sac compression. There is moderate bilateral neural foraminal narrowing. At L4-L5, there is advanced facet arthropathy. No alex central canal stenosis. There is probable mod erate right neural foraminal narrowing and mild left neural foraminal narrowing. At L5-S1, there is advanced degenerative disc narrowing. There is minimal disc bulge and severe facet arthropathy. No central canal stenosis. There is severe bilateral neural foraminal conference. Paravertebral soft tissues are otherwise unremarkable. Impression: Chronic L1 compression fracture with no marrow edema. Postoperative change from L4 to L5, as detailed above. Severe degenerative spondylosis, as detailed above with multilevel spinal canal stenosis and neural f oraminal narrowing. Reviewed, dictated and finalized at [facility]. Impression: Chronic L1 compression fracture with no marrow edema. Postoperative change from L4 to L5, as detailed above. Severe degenerative spondylosis, as detailed above with multilevel spinal canal stenosis and neural foraminal narrowing.
--- OUTSIDE RECORDS SUMMARY | 2024-10-14 06:40 | XMS_ITS | Clinical Summary ---
Author Organization [facility] Address [address] [place] [address] Care Team Providers Care Global Ceo Name Role Phone Ying Banerjee MD Unavailable [phone] Sedrick Lynch MD Primary Care Provider [phone] Source Comments [facility],non-owned Affiliates and Associated Physician Practices is amultiple site organization consisting of ambulatory clinics and hospital sitesin [place], [place], [place] and [place]. This disclosure is being madepursuant to the Care Everywhere program and may not contain all information available regarding this patient. 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
--- OUTSIDE RECORDS SUMMARY | 2024-10-14 06:40 | XMS_ITS | Continuity of Care Document ---
Author Organization [employer] [facility] [facility] Address [address] Echevarria [address] [place] [phone] Phone Care Team Providers Care Hematology Technician Name Role Phone Lorne Gardner MD Unavailable [...] No Charge Refraction IOLMaster IOLMaster Office/outpatient Visit, [facility] Advance Directives Directive Yes / No Effective Date File Name No Information Encounters Encounter Description Practice Location Reason(s) For Visit Diagnoses Date Provider Providers Copied on Encounter [facility] [place] [facility], [address] [facility] [[email or web address]][address], [place], [place], [address], tel:[phone] SEC Adebayo THAO Professional Post-Op (chief complaint) Surgery follow-up examination Jj Pradhan. [address] [facility] [place], [place], [address], [place]. tel:[phone] Referring Provider: Nimisha Gallardo OD, [address] [facility], [place], [address]. tel:[phone] [facility], [address], [place], [place], [address], [place] tel:[phone] SEC Adebayo THAO Professional 1 wk CE PO (chief complaint) Surgery follow-up examination Jj Pradhan. [address] [facility] [place], [place], [address], [place]. tel:[phone] Referring Provider: Nimisha Gallardo OD, [address] [facility], [place], [address]. tel:[phone] [facility], [address], [place], [place], [address], [place] tel:[phone] SEC Adebayo THAO Professional Post-Op (chief complaint) Encounter for examination following surgery Aug-2 3-201 7 Master Estevez. [address] [facility], [address], [place], [place], [address], [place]. tel:[phone] Referring Provider: Nimisha Gallardo OD, [address] [facility], [place], [address]. tel:[phone] [facility], [address], [place], [place], [address], [place] tel:[phone] [facility] No Information Aug-2 2-201 7 Jj Pradhan. [address] [facility], [address], [place], [place], [address], [place]. tel:[phone] Referring Provider: Nimisha Gallardo OD, [address] [facility], [place], [address]. tel:[phone] [facility], [address], [place], [place], [address], [place] tel:[phone] SEC Adebayo THAO Professional 2 week post op (chief complaint) No Information Aug- 0-201 7 Jj Pradhan. [address], [place], [place], [address], [place]. tel:[phone] Referring Provider: Nimisha Gallardo OD, [address] [facility], [place], [address]. tel:[phone] [facility], [address], [place], [place], [address], [place] tel:[phone] SEC [place] Professional Post-Op (chief complaint) No Information 7 Jj Pradhan. [address] [facility], [address] [place], [address], [place]. tel:[phone] Referring Provider: Nimisha Gallardo OD, [address] [facility], [place], [address]. tel:[phone] [facility], [address], [place], [place], [address], [place] tel:[phone] SEC [place] Professional Post-Op (chief complaint) No Information 7 Brown Abigail. [address] [place], [address], [place]. tel:[phone] Referring Provider: Nimisha Gallardo OD, [address] [facility], [place], [address]. tel:[phone] [facility], [address], [place], [place], [address], [place] tel:[phone] [facility] No Information 7 Jj Pradhan. [address] [facility], [address] [place], [address], [place]. tel:[phone] Referring Provider: Nimisha Gallardo OD, [address], [place], [address]. tel:[phone] [facility], [address], [place], [place], [address], [place] tel:[phone] SEC [facility] No Information 7 Jj Pradhan. [address] [facility], [address] [place], [address], [place]. tel:[phone] [facility], [address], [place], [place], [address], tel:[phone] SEC [place] Professional Testing only (chief complaint) No Information 3 6 Jj Pradhan. [address] [employer], [address] [place], [place], [address], . tel:[phone] Referring Provider: Nimisha Gallardo OD, [address] [facility], [place], [address]. tel:[phone] Office/outpat ient Visit, [facility], [address], [place], [place], [address], tel:[phone] SEC [place] Professional Cataract evaluation (chief complaint) No Information 6 Jj Pradhan. [address] [employer], [facility] [place], [address], [place]. tel:[phone] Referring Provider: Nimisha Gallardo OD, [address] [facility], [place], [address]. tel:[phone] [facility], [address], [place], [place], [address], [place] tel:[phone] SEC [place] Professional No Information 6 Master Estevez. [address] [employer], [facility] [place], [place], [address], [place]. tel:[phone] Family History Family Member Type Diagnosis Age [...] Referral Referred To: YORDY BADILLO [address] [place], [place], [id number] Ordered: Referrals: Ophthalmology. YORDY BADILLO. Evaluate and [...] MD on May 24 at 8:30am in [place]. *Nimisha Gallardo, OD referral*Possible shugarcaine and Malyugin [...]
--- OUTSIDE RECORDS SUMMARY | 2024-10-14 06:40 | XMS_ITS | Encounter Summary ---
Author Organization [facility] Address [address] [facility] [place] [address] Care Team Providers Care Director Advertising Name Role Phone Ying Banerjee MD Unavailable [phone] Sedrick Lynch MD Primary Care Provider [phone] Encounter Details Date Type Department Care Team (Late st Contact Info) Description 11/30/2022 Lab Requisition [facility] [address] [facility] [place] [address] Keo Cook MD [address] [place] [address] Social History Tobacco Use Types Packs/Day Years Used Date Smoking Tobacco: Never Smokeless Tobacco: Never Alcohol Use Standard Drinks/Week Comments Yes 0 (1 standard drink = 0.6 oz pur e alcohol) sometimes Sex and Gender Information Value Date Recorded Sex Assigned at Not on file 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 Gender Identity Not on file Sexual Orientation Not on file documented as of this encounter Plan of Treatment Not on file documented as of this encounter Procedures Procedure Name Priority Date/Time Associated Diagnosis Comments DERMATOPATHOLOGY Routine 11/29/2022 12:0 0 AM CDT documented in this encounter Results * DERMATOPATHOLOGY (11/29/2022 12:00 AM CDT) Case Report Dermatopathology Report Case: [id number] Authorizing Provider: Keo Cook MD Collected: 11/29/2022 12:00 AM Ordering Location: [facility] Lab Received: 11/30/2022 02:22 PM [...] specimen consists of a shave biopsy measuring 32f21k6 mm. Jar 0. 4:54 PM T DERMATOPATHOLOGY [...] characteristic determined by the Dermatopathology Laboratory at [facility], directed by Dr. Stephie Carlos. These tests need not be, and therefore are not, approved by the [place] Food and Drug Administration. The tests are used for clinical purposes. Billing Codes Specimen Charges Stain Charges 41965 [id number] 1 1 3 4:54 PM CDT DERMATOPATHOLOGY LABORATORY Embedded Images 3 4:54 PM CDT DERMATOPATHOLOGY LABORATORY Pathology/Cytology TISSUE SPECIMEN FROM SKIN / Unknown 11/29/2022 11/30/2022 2:22 PM CDT Miscellaneous samples (specimen) TISSUE SPECIMEN FROM SKIN / Unknown 11/29/2022 11/30/2022 2:22 PM CDT Koe Cook MD LAB - PATHOLOGY/CYTOLOGY ORD ERABLES Final Result DERMATOPATHOLOGY LABORATORY [facility] - Department of Dermatology [facility] [address] [place] [address], [address] [phone] documented in this encounter Visit Diagnoses Not on filedocumented in this encounter Care Teams Director Advertising Relationship Specialty Start Date End Date Sedrick Lynch MD [address] [place] [address] PCP - General 06/12/18 [place] [address] [place] [address] Neurology 08/26/11 documented as of this encounter
--- OUTSIDE RECORDS SUMMARY | 2024-10-14 06:40 | XMS_ITS | Referral Summary ---
Author Organization [facility] [address] [place] [address] [address] [place] [address] Care Team Providers Care Client Technologies Analyst Name Role Phone Vipul Morgan MD Primary Care Provider [phone] Encounters Date Type Department Care Team Description 09/09/2024 8:30 AM CDT Office Visit [facility] Cardiology [address] [facility] [address] [place] [address] Vipul Lucero MD History of coronary artery stent placement (Primary Dx) 09/04/2024 Documentation [facility] Movement Disorders [address] [place] [phone] [place] Frost, DARWIN DBS/FUS Packet 09/04/2024 10:30 AM CDT Office Visit [facility] Movement Disorders [address] [place] [phone] Hank Macias MD Tremor from Last 3 [...] tablet (150 mg total) by mouth daily 01/28/2022 Active nitroglycerin (NITROSTAT) 0.[address] 1 tablet (0.4 mg total) under the tongue every 5 (five) minutes as needed for chest pain May repeat dose q 5 min, up to 3 doses total 30 tablet 2 06/21/2022 Active Active Problems Problem Noted Date Diagnosed Date Angina pectoris, unspecified 06/21/2022 Closed wedge compression fra cture of L1 vertebra with routine healing 12/21/2020 Sensorineural hearing loss, bilateral 02/19/2018 Spinal stenosis of lumbar re gion with neurogenic claudication 09/25/2017 Coronary artery disease invo lving [place] coronary artery of [place] heart without angina pectoris 03/28/2017 History of [...] on file 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 Gender Identity Not on file Sexual Orientation [...] on file Medical Devices Implanted Type Area On Site Services Specialist Device Identifier Shelf Expiration Date Model / Serial / Lot [employer] [id number] Acupac Allograft Frozen Graft 25cc Bone Cancellous - [id number] - [id number] Implanted:Qty: 1 on 11/21/2017 by Nixon Castle MD at [facility] N/A: Spine Lumbar [employer] 09/06/2019 [id number] / [id number] / [employer] 1067.4750 Creo 7.5mm 50mm Cannulated Modular Spine Screw Bone - [id number] Implanted:Qty: 4 on 11/21/2017 by Nixon Castle MD at [facility] N/A: Spine Lumbar [employer] [id number] / / Mis Nitrol Tulip Implanted:Qty: 4 on 11/21/2017 by Nixon Castle MD at [facility] N/A: Spine Lumbar [employer] [id number] / / Mis Locking Cap Implanted:Qty: 4 on 11/21/2017 by Nixon Castle MD at [facility] N/A: Spine Lumbar [employer] [id number] / / [employer] [id number] Creo Mis 5.5mm 50mm Curve Flex Spinal Titanium - [id number] Implanted:Qty: 2 on 11/21/2017 by Nixon Castle MD at [facility] N/A: Spine Lumbar [employer] [id number] / / [employer] 1124.1232 Altera [id number] 15d Spacer Spinal - [id number] Implanted:Qty: 1 on 11/21/2017 by Nixon Castle MD at [facility] N/A: Spine Lumbar [employer] 1124.1232 / / Insurance [facility] MEDICARE Kupon[employer]id MEDICARE AET[employer] MEDICARE Advance Directives For more information, please contact: [phone] * Full Code (Latest Code Status on File) Date Activated Date Inactivated Comments 11/21/2017 5:51 PM 11/22/2017 7:37 PM Care Teams Client Technologies Analyst Relationship Specialty Start Date End Date Vipul Morgan MD PCP - General Family Medicine 10/18/22
--- OUTSIDE RECORDS SUMMARY | 2024-10-14 06:40 | XMS_ITS | Clinical Summary ---
Author Organization [facility] [address] Address [address] [place] [address] Care Team Providers Care Senior Stack Engineer Name Role Phone Vipul Morgan MD Primary Care Provider [phone] Allergies Active Allergy Reactions Criticality Noted Date [...] claudication 09/25/2017 Coronary artery disease invo lving [place] coronary artery of [place] heart without angina pectoris 03/28/2017 History of coronary artery stent placement 03/28 Dizziness 08/15/2016 Hearing loss 10/22/2014 Impacted cerumen 04/05/2013 Degeneration of lumbar or lumbosacral interverte bral disc 05/25/2011 Resolved Problems Problem Noted Date Diagnosed Date Resolved Date History of coronary artery stent placement 04/03/2018 04/25/2019 Encounters Date Type Department Care Team Description 09/09/2024 8:30 AM CDT Office Visit [facility] Cardiology [address] [place] [address] Vipul Lucero MD History of coronary artery stent placement (Primary Dx) 09/04/2024 10:30 AM CDT Office Visit [facility] Movement Disorders [facility] [address] [place] [address] Hank Macias MD Tremor 09/04/2024 Documentation [facility] Movement Disorders [address] [facility] [address] [place] [phone] [place] Frost, DARWIN DBS/FUS Packet from Last 3 Months Immunizations [...] on file 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 N/A: Spine Lumbar [employer] 09/06/2019 [id number] / [id number] / [employer] 1067.4750 Creo 7.5mm 50mm Cannulated Modular Spine Screw Bone - [id number] Implanted:Qty: 4 on 11/21/2017 by Nixon Castle MD at [facility] N/A: Spine Lumbar [employer] [id number] / / Mis Nitrol Tulip Implanted:Qty: 4 on 11/21/2017 by Nixon Castle MD at [facility] N/A: Spine Lumbar [employer] [id number] / / Mis Locking Cap Implanted:Qty: 4 on 11/21/2017 by Nixon Castle MD at [facility] N/A: Spine Lumbar [employer] [id number] / / [employer] [id number] Creo Mis 5.5mm 50mm Curve Flex Spinal Titanium - [id number] Implanted:Qty: 2 on 11/21/2017 by Nixon Castle MD at [facility] N/A: Spine Lumbar [employer] [id number] / / [employer] 1124.1232 Altera [id number] 15d Spacer Spinal - [id number] Implanted:Qty: 1 on 11/21/2017 by Nixon Castle MD at [facility] N/A: Spine Lumbar [employer] 1124.1232 / / Insurance [employer] MEDICARE MEDICARE MEDICARE Advance Directives For more information, please contact: [phone] * Full Code (Latest Code Status on File) Date Activated Date Inactivated Comments 11/21/2017 5:51 PM 11/22/2017 7:37 PM Care Teams Senior Stack Engineer Relationship Specialty Start Date End Date Vipul Morgan MD PCP - General Family Medicine 10/18/22
== END 2024-10-14 06:37 | disposition home or self-care (01) ==
PROVIDERS: PCP Family Medicine; Visit Provider Family Medicine
DX: S32.010K Wedge compression fracture of first lumbar vertebra, subsequent encounter for fracture with nonunion (principal); Z98.890 Other specified postprocedural states; X58.XXXD Exposure to other specified factors, subsequent encounter; M47.26 Other spondylosis with radiculopathy, lumbar region
CPT/HCPCS: 72148

== ENCOUNTER 2025-03-26 14:53 | Outpatient (CLI) | payer MEDICARE, SELFPAY ==
[2025-03-26 18:38] LABS: Alanine Aminotransferase 12 U/L (6-50); Albumin Level 3.7 g/dL (3.5-5.1); Alkaline Phosphatase 60 U/L (38-126); Anion Gap 3 mmol/L (4-12); Aspartate Amino Transferase 35 U/L (17-59); Bilirubin,Total 1.0 mg/dL (0.2-1.3); Blood Urea Nitrogen 28 mg/dL (9-20); Calcium 8.9 mg/dL (8.4-10.2); Carbon Dioxide 31 mmol/L (22-30); Chloride 105 mmol/L (98-107); Cholesterol 134 mg/dL (0-200); Estimated Glomerular Filt Rate 55; Glucose 97 mg/dL (65-110); HDL Direct 54 mg/dL; Potassium 4.6 mmol/L (3.4-5.0); Sodium 139 mmol/L (137-145); Total Protein 6.6 g/dL (6.3-8.2); Triglycerides 70 mg/dL (<150)
[2025-03-26 19:01] LABS: Hemoglobin A1C 5.1 % (<5.7)
--- OUTSIDE RECORDS SUMMARY | 2025-03-26 19:09 | XMS_ITS | Encounter Summary ---
Author Organization [facility] Address [address] [facility] [place] [address] Care Team Providers Care Novelty Printing Machine Operator Name Role Phone Ying Banerjee MD Unavailable [phone] Sedrick Lynch MD Primary Care Provider [phone] Encounter Details Date Type Department Care Team (Late st Contact Info) Description 11/30/2022 Lab Requisition [facility] [address] [facility] [place] [place] [address] Keo Cook MD [address] [place] [address] Social History Tobacco Use Types Packs/Day Years Used Date Smoking Tobacco: Never Smokeless Tobacco: Never Alcohol Use Standard Drinks/Week Comments Yes 0 (1 standard drink = 0.6 oz pur e alcohol) sometimes Sex and Gender Information Value Date Recorded Sex Assigned at Not on file Legal Sex Male 8:02 AM 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 CARE 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 Gender Identity Not on file Sexual Orientation Not on file documented as of this encounter Plan of Treatment Not on file documented as of this encounter Procedures Procedure Name Priority Date/Time Associated Diagnosis Comments DERMATOPATHOLOGY Routine 11/29/2022 12:0 0 AM CDT documented in this encounter Results * DERMATOPATHOLOGY (11/29/2022 12:00 AM CDT) Case Report Dermatopathology Report Case: [id number] Authorizing Provider: Keo Cook MD Collected: 11/29/2022 12:00 AM Ordering Location: [facility] DermPath Lab Received: 11/30/2022 02:22 PM Pathologist: Christi Velazquez MD Specimens: A) - Skin, right cheek ant to right earlobe B) - Skin, top right shoulder 4:54 PM CDT DERMATOPATHOLOGY LABORATORY Final Diagnosis Specimen A. 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 SKIN, top right shoulder: BASAL CELL CARCINOMA, NODULAR TYPE (C44.611) 4:54 PM CDT DERMATOPATHOLOGY LABORATORY at 1654 CDT Clinical History A: R/O SCC B: R/O [...] specimen consists of a shave biopsy measuring 97l43k5 mm. Jar 0. 4:54 PM CDT DERMATOPATHOLOGY LABORATORY Microscopic Description Specimen A. SKIN, [...] characteristic determined by the Dermatopathology Laboratory at [facility], directed by Dr. Stephie Carlos. These tests need not be, and therefore are not, approved by the [place] Food and Drug Administration. The tests are used for clinical purposes. Billing Codes Specimen Charges Stain Charges 81261 74770 1 1 3 4:54 PM CDT DERMATOPATHOLOGY LABORATORY Embedded Images 3 4:54 PM CDT DERMATOPATHOLOGY LABORATORY Pathology/Cytology TISSUE SPECIMEN FROM SKIN / Unknown 11/29/2022 11/30/2022 2:22 PM CDT Miscellaneous samples (specimen) TISSUE SPECIMEN FROM SKIN / Unknown 11/29/2022 11/30/2022 2:22 PM CDT Keo Cook MD LAB - PATHOLOGY/CYTOLOGY ORD ERABLES Final Result DERMATOPATHOLOGY LABORATORY [facility] - Department of Dermatology [facility] Specialized Medicine [address] [place] [address], [address] [phone] documented in this encounter Visit Diagnoses Not on filedocumented in this encounter Care Teams Novelty Printing Machine Operator Relationship Specialty Start Date End Date Sedrick Lynch MD [address] [place] [address] PCP - General 06/12/18 [place] [address] [place] [address] Neurology 08/26/11 documented as of this encounter
--- OUTSIDE RECORDS SUMMARY | 2025-03-26 19:09 | XMS_ITS | Clinical Summary ---
Author Organization [facility] Address [address] [place] [address] Care Team Providers Care Cook Room Supervisor Name Role Phone Ying Banerjee MD Unavailable [phone] Sedrick Lynch MD Primary Care Provider [phone] Source Comments [facility],non-owned Affiliates and Associated Physician Practices is amultiple site organization consisting of ambulatory clinics and hospital sitesin [place], [place], [place] and [place]. This disclosure is being madepursuant to the Care Everywhere program and may not contain all information available regarding this patient. Last updated 18.[facility] Allergies Active Allergy Reactions Criticality Noted Date [...] on file Legal Sex Male 8:02 AM SUPERVISOR PRECISION OPTICAL ELEMENTS Gender Identity Not on file Sexual Orientation Not on file Last Filed Vital Signs Vital Sign Reading Time Taken Comments Blood Pressure 103/70 08/26/2011 9:06 AM CDT Pulse 56 07/29/2011 9:04 AM SUPERVISOR PRECISION OPTICAL ELEMENTS Temperature - - Respiratory Rate - - Oxygen Saturation - - Inhaled Oxygen Concentration - - Weight 84.4 kg (186 lb) 08/26/2011 9:06 AM CDT Height 188 cm (6' 2) 08/26/2011 9:06 AM CDT Body Mass Index 23.88 08/26/2011 9:06 AM CDT Plan of Treatment Health Maintenance Due Date Last Done Comments DTAP/TDAP/TD VACCINES (1 - Tdap) 1956 PNEUMOCOCCAL VACCINE 50+ (1 of 1 - PCV) 1987 ZOSTER VACCINE (1 of 2) 1987 Respiratory Syncytial Virus (RSV) Vaccine Pt: or over 60 yrs (1 - 1-dose 75+ series) 2012 DEPRESSION SCREENING 06/05/2024 MEDICARE AWV CALENDAR YEAR 2024 COVID-19 VACCINE ( - 2023-2 5 season) 2025 INFLUENZA VACCINE (#1) 2025 HEPATITIS B VACCINE Aged Out No [...] age to complete this topic Insurance [facility] MEDICARE ADV [facility] MEDICARE ADV Care Teams Cook Room Supervisor Relationship Specialty Start Date End Date Sedrick Lynch MD [address] [place] [address] PCP - General 06/12/18 Ying Banerjee MD [address] [address] Neurology 08/26/11
--- OUTSIDE RECORDS SUMMARY | 2025-03-26 19:09 | XMS_ITS | Patient Health Record ---
[facility] Organization [facility] Address [address] [place] [address] Care Team Providers Care Process Safety Specialist Name Role Phone Yordy Mitchell Primary Care Provider Haydee Aleman Unavailable [phone] Dottie ARMIJO, Yazan Unavailable Unavailable Reason For Referral No Information Medications Medication SIG (Take, Route, Frequency, Duration) Notes Start Date End Date Status Lisinopril Acute Active State (Champ) Active Atenolol Acute Active State (Champ) Active Aspirin Acute Active State (Champ) Active Vytorin Acute Active State (Champ) Active Plan Of Treatment No Information Insurance Providers Payer Name Payer Address Payer Phone Subscriber Number Group Number Insured Name Patient Relationship to Insured Coverage Start Date Coverage End Date MEDICARE SERVICES [address] [address] [place] [address] [id number] Cristian Shields Self - patient is the insured
--- OUTSIDE RECORDS SUMMARY | 2025-03-26 19:09 | XMS_ITS | Clinical Summary ---
Author Organization [facility] [address] Address [address] [place] [address] Care Team Providers Care Ground Equipment Mechanic Name Role Phone Vipul Morgan MD Primary Care Provider [phone] Allergies Active Allergy Reactions Criticality Noted Date Comments Ciprofloxacin Swelling Medium Codeine Hives,Nausea & Vomiting Medium 05/25/2011 Iodine Swelling Medium 11/22/2021 Shellfish Derived Swelling Medium Sulfa (Sulfonamide Antibiotics) Unknown 11/22/2021 Medications propranolol (INDERAL) 80 mg tabletIndicatio ns:for [...] claudication 09/25/2017 Coronary artery disease invo lving [place] coronary artery of [place] heart without angina pectoris 03/28/2017 History of coronary artery stent placement 03/28 Dizziness 08/15/2016 Hearing loss 10/22/2014 Impacted cerumen 04/05/2013 Degeneration of lumbar or lumbosacral interverte bral disc 05/25/2011 Resolved Problems Problem Noted Date Diagnosed Date Resolved Date History of coronary artery stent placement 04/03/2018 04/25/2019 Encounters Date Type Department Care Team Description 02/21/2025 10:15 AM CDT Office Visit [facility] Medicine Neurosurgery [address] [place] [address] Sarah Duong NP 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) from Last 3 Months Immunizations Immunization Administration [...] Former Smokeless Tobacco: Never Tobacco Cessation:Counseling Given: No Comments:smoked for four years Alcohol Use Standard [...] on file Legal Sex Male 8:40 AM 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 AND 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 Gender Identity Not on file Sexual Orientation [...] CDT Inhaled Oxygen Concentration - - Weight 83.5 kg (184 lb) 02/21/2025 9:59 AM CDT Height 185.4 cm (6' 1) 02/21/2025 9:59 AM CDT Body Mass Index 24.28 02/21/2025 9:59 AM CDT Plan of Treatment Health Maintenance Due Date Last Done Comments Depression Screening 1937 Fall Risk Assessment 1937 Hepatitis B Screening 1955 Zoster Vaccine (1 of 2) 1987 Well Visit 65+ 2002 Covid-19 Vaccine (2024-2 6 season) 2025 02/24/2022, 02/23/2022, 12/01/2021, Additional history exists Influenza Vaccine (#1) 2025 , 06/01/2021, 03/31/2020, Additional history exists DTaP/Tdap/Td Vaccine (3 - Td or Tdap) 06/06/2027 06/06/2017, 01/02/2016, 12/04/2011 Pneumococcal vaccine 65+ Completed 018, 06/06/2017, 06/05/2016 Medical Devices Implanted Type Area Safety And Occupational Health Manager Device Identifier Shelf Expiration Date Model / Serial / Lot [employer] [id number] Acupac Allograft Frozen Graft 25cc Bone Cancellous - [id number] - [id number] Implanted:Qty: 1 on 11/21/2017 by Nixon Castle MD at [facility] N/A: Spine Lumbar [employer] 09/06/2019 [id number] / [id number] / [employer] [id number] Creo 7.5mm 50mm Cannulated Modular Spine Screw Bone - [id number] Implanted:Qty: 4 on 11/21/2017 by Nixon Castle MD at [facility] N/A: Spine Lumbar [employer] [id number] / / Mis Nitrol Tulip Implanted:Qty: 4 on 11/21/2017 by Nixon Castle MD at [facility] N/A: Spine Lumbar [employer] [id number] / / Mis Locking Cap Implanted:Qty: 4 on 11/21/2017 by Nixon Castle MD at [facility] N/A: Spine Lumbar [employer] [id number] / / [employer] [id number] Creo Mis 5.5mm 50mm Curve Flex Spinal Titanium - [id number] Implanted:Qty: 2 on 11/21/2017 by Nixon Castle MD at [facility] N/A: Spine Lumbar [employer] [id number] / / [employer] 1124.1232 Altera [id number] 15d Spacer Spinal - [id number] Implanted:Qty: 1 on 11/21/2017 by Nixon Castle MD at [facility] N/A: Spine Lumbar [employer] [id number] / / Insurance T MEDICARE AET[employer] MEDICARE Advance Directives For more information, please contact: [phone] * Full Code (Latest Code Status on File) Date Activated Date Inactivated Comments 11/21/2017 5:51 PM 11/22/2017 7:37 PM Care Teams Ground Equipment Mechanic Relationship Specialty Start Date End Date Vipul Morgan MD PCP - General Family Medicine 10/18/22
[2025-03-26 19:14] LABS: Thyroid Stimulating Hormone 2.260 uIU/mL (0.465-4.680)
== END 2025-03-26 14:54 | disposition home or self-care (01) ==
LOC: ANHGOSHLAB 14:53
PROVIDERS: PCP Family Medicine; Visit Provider Family Medicine
DX: R73.03 Prediabetes (principal); N18.9 Chronic kidney disease, unspecified; E03.9 Hypothyroidism, unspecified
CPT/HCPCS: 36415; 80053; 80061; 83036; 84443

== ENCOUNTER 2025-04-06 18:40 | Emergency (ER) | payer MEDICARE, SELFPAY ==
--- OUTSIDE RECORDS SUMMARY | 2016-09-16 03:15 | XMS_ITS | Continuity of Care Document ---
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 Name Role Phone Lorne Gardner MD Unavailable Unavailable Allergies, Adverse Reactions, Alerts Substance Reaction Status Criticality codeine Active No Information CIPROFLOXACIN HCL Active No Informa tion ciprofloxacin Active No Information Medications Medication Instructions Dosage Effective Dates (start - stop) Status Comments diclofenac 0.1 % eye drops Instill 1 drop in the operated eye TID x 4 weeks - Active polymyxin B sulfate 10,000 unit-trimethoprim 1 mg/mL eye drops instill 1 drop into the operative eye QID x 7 days, then TID x 3 weeks, then stop - Active prednisolone acetate 1 % eye drops,suspension instill 1 drop in the operated eye QID x 1 week, TIDx 1 week, BID x 1 week then Qday x 1 week then stop - Active aspirin 81 mg tablet,delayed release take 1 tablet by oral route every day 81 MG - Active atenolol 25 mg tablet take 1 tablet by oral route every day 25 MG - Active Flomax 0.4 mg capsule take 1 capsule by oral route every day 1/2 hour following the same meal each day 0.4 MG - Active omeprazole 40 mg capsule,delayed release take 1 capsule by oral route every day before a meal 40 MG - Active Vytorin 10 mg-40 mg tablet take 1 tablet by oral route every day 1.00 tablet - Active Tirosint 50 mcg capsule take 1 capsule by oral route every day 50 MCG - Active finasteride 5 mg tablet take 1 tablet by oral route every day 5 MG - Active Procedures Procedure Date No Charge Refraction Post-op Follow-up Visit Post-op Follow-up Visit Post-op Follow-up Visit Complex Extracapsular Cat Rem 7 No Charge Refraction Post-op Follow-up Visit No Charge Refraction Post-op Follow-up Visit Post-op Follow-up Visit Remove Cataract, Insert Lens Limbal Relaxing Incision No Charge IOL Master No Charge Refraction IOLMaster IOLMaster Office/outpatient Visit, [facility] Advance Directives Directive Yes / No Effective Date File Name No Information Encounters Encounter Description Practice Location Reason(s) For Visit Diagnoses Date Provider Providers Copied on Encounter [facility], [address] [facility] [place], [place], [id number], tel:[phone] SEC Adebayo THAO Professional Post-Op (chief complaint) Surgery follow-up examination Jj Pradhan. [address] [facility] [place], [address], [place]. tel:[phone] Referring Provider: Nimisha Gallardo OD, [address] [facility], [place], [address]. tel:[phone] [facility] [place] [facility] [facility], [address], [place], [place], [address], [place] tel:[phone] SEC Adebayo THAO Professional 1 wk CE PO (chief complaint) Surgery follow-up examination Jj Pradhan. [address] [facility] [place], [address], [place]. tel:[phone] Referring Provider: Nimisha Gallardo OD, [address] [facility], [place], [address]. tel:[phone] [facility], [address], [place], [place], [address], [place] tel:[phone] SEC Adebayo THAO Professional Post-Op (chief complaint) Encounter for examination following surgery Aug-2 3-201 7 Master Estevez. [address] [facility] [address], [place], [place], [address], [place]. tel:[phone] Referring Provider: Nimisha Gallardo OD, [address] [facility], [place], [address]. tel:[phone] [facility], [address], [place], [place], [address], [place] tel:[phone] [facility] No Information Aug-2 2-201 7 Jj Pradhan. [address] [facility], [address], [place], [place], [address], [place]. tel:[phone] Referring Provider: Nimisha Gallardo OD, [address] [facility], [place], [address]. tel:[phone] [facility], [address], [place], [place], [address], [place] tel:[phone] SEC Adebayo THAO Professional 2 week post op (chief complaint) No Information Aug- 0-201 7 Jj Pradhan. [address], [place], [place], [address], [place]. tel:[phone] Referring Provider: Nimisha Gallardo OD, [address] [facility], [place], [address]. tel:[phone] [facility], [address], [place], [place], [address], [place] tel:[phone] SEC Adebay[place] Professional Post-Op (chief complaint) No Information 7 Jj Pradhan. [address] [facility], [address] [place], [address], [place]. tel:[phone] Referring Provider: Nimisha Gallardo OD, [address] [facility], [place], [address]. tel:[phone] [facility], [address], [place], [place], [address], [place] tel:[phone] SEC Adebay[place] Professional Post-Op (chief complaint) No Information 7 Brown Abigail. [address] [place], [address], [place]. tel:[phone] Referring Provider: Nimisha Gallardo OD, [address] [facility], [place], [address]. tel:[phone] [facility], [address], [place], [place], [address], [place] tel:[phone] [facility] No Information 7 Jj Pradhan. [address] [facility], [address] [place], [address], [place]. tel:[phone] Referring Provider: Nimisha Gallardo OD, [address] [facility], [place], [address]. tel:[phone] [facility], [address], [place], [place], [address], [place] tel:[phone] SEC [facility] Dariusz No Information 7 Jj Pradhan. [address] [facility], [address] [place], [address], [place]. tel:[phone] [facility], [address], [place], [place], [address], tel:[phone] SEC M[place]od [place] Professional Testing only (chief complaint) No Information 3 6 Jj Pradhan. [address], [address] [place], [address], . tel:[phone] Referring Provider: Nimisha Gallardo OD, [address] [facility], [place], [address]. tel:[phone] Office/outpat ient Visit, [facility], [address], [place], [place], [address], tel:[phone] SEC Adebayo [place] Professional Cataract evaluation (chief complaint) No Information 6 Jj Pradhan. [address], [facility] [place], [address], [place]. tel:[phone] Referring Provider: Nimisha Gallardo OD, [address] [facility], [place], [address]. tel:[phone] [facility], [address] [facility] [place] [address], [place], [place], [address], [place] tel:[phone] SEC Adebayo [place] Professional No Information 6 Master Estevez. [address], [facility] [place], [address], [place]. tel:[phone] Family History Family Member Type Diagnosis Age At Onset No Information Payers Payer name Insurance type Covered libertarian ID Authoriza tion(s) No Information Social History Type Description Quantity Date Captured Comments Alcohol Use Details Unknown Caffeine Use Details Unknown Tobacco Use Status No Information Smoking Status No Information Sex Male Chief Complaint And Reason For Visit From encounter dated '09/16/2016 09:15'. Post-Op (chief complaint). Description: The 81 year old male presents fora 1 month post op CE OS. Patient is pseudo ou. Patient states ou is doing good. Patient is finished with drops. Reason For Referral Reason For Referral No Information Plan Of Treatment Date Type Action Status Referral Ordered: YORDY BADILLO -Ophthalmology (related to Retinal tear of left eye) ordered Referral Referred To: YORDY BADILLO [address], [place], [id number] Ordered: Referrals: Ophthalmology. YORDY BADILLO. Evaluate and treat ordered History Of Present Illness Encounter Date Complaint History Of Prese nt Illness Post-Op The 81 year old male presents fora 1 month post op CE OS. Patient is pseudo ou. Patient states ou is doing good. Patient is finished with drops. 1 wk CE PO The 81 year old male presents for 1 wk CE PO in the left eye. Pt has Hx of PCIOL w/ LRI OD and PCIOL OS. Pt is using Diclofenac TID OD, Polytrim TID OD, and Prednisolone TID OD. Pt reports no pain, irritation, or discomfort OU. Post-Op The 81 year old male presents for a 1 day post op CE OS. Patient is using Diclofenac, Poly and Pred as directed. Patient denies any pain or discomfort. 2 week post op The 81 year old male presents for 2 week post op OD after CE with LRI. Pt is using Poly TID OD, Diclofenac TID OD, and Pred BID OD. No complaints. Pt would like to have CE OS due to decreased vision and glare. Pt is wearing a soft contact lens OS until CE. Pt needs refills on post op drops. Post-Op The 81 year old male presents for a 1 week post op CE with LRI OD. Patient is using Pred, Poly and Diclofenac as directed. Patient states OD is doing good. Post-Op The 81 year old male presents for 1 day Post-Op Phaco w/LRI in the right eye. PT assigned Poly, Pred and Diclo. PO instructions explained, given and understood. Pt scheduled for OS sx on 08/24/2016. Pt reports that he is feeling a little off balance today, not sure if this is related to the vision or not. Testing only The 81 year old male presents for a repeat IOL master and AR. Cataract evaluation The 80 year old male presents for Cataract evaluation in the right eye and left eye. Pt not using any eye drops. Pt is taking Flomax for 2 more days then he will be off for good. Pt states he is having such dificulty with his vision that he avoids driving at night, he gets lots of glare from headlights especially on rainy days. Pt states he has trouble seeng small print and road signs. Pt states watching tv has gotten increasingly difficult. Pt states he has lots of floaters from aretinal tears over 20 years ago but he doesnt remember which eye. Pt states no pain/discomfort. Functional Status Date Functional Assessmen t No Information Instructions Date Instruction Darcie cooper Follow up - Return t o Nimisha Gallardo OD for regularly scheduled visits Impression/Plan - 1 month s/p Phaco IOL OS:- Patient has healed well.- All post operative medications are finished.- Vision is good and IOP is stable.- Advised patient to call the office immediately with new onset of floaters, flashes or curtain vision loss.- Recommend patient return to Nimisha Gallardo OD for regularly scheduled visits. Follow up - Return to clinic as scheduled Impression/Plan - On e week PO s/p Phaco with IOL OS:- IOL in good position; healing well.- Patient advised they no longer need to wear the shield over the eye at bedtime.- Medication instillation and post op instructions reviewed.- Patient will return in 3 weeks or sooner with problems. Follow up - as scheduled Impression/Plan - 1 day post op Phaco with PCIOL OS, discussed post op instructions and medication use. Return to clinic as scheduled Follow up - Proceed with OS CE a s scheduled Impression/Plan - 2 weeks s/p Phaco IOL+LRI OD:- Patient healing well.- Medication instillation reviewed with patient in detail.- Vision is good and IOP is stable.- Patient elects to proceed with OS CE as scheduled. Follow up - Return to clinic as scheduled Impression/Plan - On e week PO s/p Phaco with IOL+LRI OD:- IOL in good position; healing well.- Patient advised they no longer need to wear the shield over the eye at bedtime.- Medication instillation and post op instructions reviewed.- Patient will return in 3 weeks or sooner with problems. Impression/Plan - On e Day Post Op s/p Phaco with LRI OD. IOL OD in good position. Patient healing well. Medication instillation, shield use and restrictions reviewed with patient. Return to clinic as scheduled or sooner with problems. Follow up - Schedule CE OD with Standard IOL set for distance + LRI followed by CE OS with Standard IOL set for distance Impression/Plan - Pt here for repeat IOL master today. Measurements today indicate more astigmatism than previous. Discussed the options of correction of astigmatism with glasses or surgically with LRI. Discussed that the LRI will decrease his astigmatism and will improve his vision without glasses for distance, but we cannot guarantee that he will not need glasses for distance, particularly with his extreme myopia. He also understands that he will need glasses for reading distance either way. Patient elects to proceed with CE OD with Standard IOL set for distance + LRI followed by CE OS with Standard IOL set for distance Follow up - Schedule CE with the standard IOL set for distance, followed by CE with the standard IOL set for distance Impression/Plan - Ca taract OU accounts for patient's visual complaints. Discussed all risks, benefits and alternatives pertaining to cataract surgery. The procedure and recovery from cataract extraction were discussed. Patient understands that because he has had previous retinal tears and detachments that increases his risk for retinal complications over the average patient following CE. Recommend phacoemulsification with intraocular lens implant. Lifestyle lens options discussed. Explained that high myopia can make the IOL calculations more difficult and possibly slightly less accurate. The possibility that patient may still need to wear glasses to correct astigmatism and/or for reading vision following surgery reviewed and understood by patient. 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 Recommend patient be evaluated by a retina specialist before CE OU to be sure the retina is healthy, no additional laser is needed, and retina is cleared to proceed with cataract surgery. Appointment was made with Yordy Badillo MD on May 24 at 8:30am in [place]. 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
--- OUTSIDE RECORDS SUMMARY | 2016-09-16 03:15 | XMS_ITS | Continuity of Care Document ---
Author Organization [facility] [place] [address] [facility] E[facility] [address] [place] [phone] Phone Care Team Providers Care Glass Presser Name Role Phone Lorne Gardner MD Unavailable Unavailable Allergies, Adverse Reactions, Alerts Substance Reaction Status Criticality codeine Active No Information CIPROFLOXACIN HCL Active No Informa tion ciprofloxacin Active No Information Medications Medication Instructions Dosage Effective Dates (start - stop) Status Comments prednisolone acetate 1 % eye drops,suspension instill 1 drop in the operated eye QID x 1 week, TIDx 1 week, BID x 1 week then Qday x 1 week then stop - Active polymyxin B sulfate 10,000 unit-trimethoprim 1 mg/mL eye drops instill 1 drop into the operative eye QID x 7 days, then TID x 3 weeks, then stop - Active diclofenac 0.1 % eye drops Instill 1 drop in the operated eye TID x 4 weeks - Active finasteride 5 mg tablet take 1 tablet by oral route every day 5 MG - Active Tirosint 50 mcg capsule take 1 capsule by oral route every day 50 MCG - Active Vytorin 10 mg-40 mg tablet take 1 tablet by oral route every day 1.00 tablet - Active omeprazole 40 mg capsule,delayed release take 1 capsule by oral route every day before a meal 40 MG - Active Flomax 0.4 mg capsule take 1 capsule by oral route every day 1/2 hour following the same meal each day 0.4 MG - Active atenolol 25 mg tablet take 1 tablet by oral route every day 25 MG - Active aspirin 81 mg tablet,delayed release take 1 tablet by oral route every day 81 MG - Active Procedures Procedure Date No Charge Refraction Post-op Follow-up Visit Post-op Follow-up Visit Post-op Follow-up Visit Complex Extracapsular Cat Rem 7 No Charge Refraction Post-op Follow-up Visit No Charge Refraction Post-op Follow-up Visit Post-op Follow-up Visit Remove Cataract, Insert Lens Limbal Relaxing Incision No Charge IOL Master No Charge Refraction IOLMaster IOLMaster Office/outpatient Visit, [facility] Advance Directives Directive Yes / No Effective Date File Name No Information Encounters Encounter Description Practice Location Reason(s) For Visit Diagnoses Date Provider Providers Copied on Encounter [facility], [address] [facility] [address], [place], [place], [id number], tel:[phone] SEC Adebayo THAO Professional Post-Op (chief complaint) Surgery follow-up examination Jj Pradhan. [address] [facility] [place], [id number], [place]. tel:[phone] Referring Provider: Nimisha Gallardo OD, [address] [facility], [place], [address]. tel:[phone] [facility], [address], [place], [place], [id number], [place] tel:[phone] SEC Adebayo THAO Professional 1 wk CE PO (chief complaint) Surgery follow-up examination Jj Pradhan. [address] [facility] [place], [address], [place]. tel:[phone] Referring Provider: Nimisha Gallardo OD, [address] [facility], [place], [address]. tel:[phone] [facility], [address], [place], [place], [id number], [place] tel:[phone] SEC Adebayo THAO Professional Post-Op (chief complaint) Encounter for examination following surgery Aug-2 3-201 7 Master Estevez. [address] [facility] [address], [place], [place], [id number], [place]. tel:[phone] Referring Provider: Nimisha Gallardo OD, [address] [facility], [place], [address]. tel:[phone] [facility], [address], [place], [place], [address], [place] tel:[phone] [facility] No Information Aug-2 2-201 7 Jj Pradhan. [address], [address], [place], [place], [address], [place]. tel:[phone] Referring Provider: Nimisha Gallardo OD, [address] [facility], [place], [address]. tel:[phone] [facility], [address], [place], [place], [id number], [place] tel:[phone] SEC Adebayo THAO Professional 2 week post op (chief complaint) No Information Aug- 0-201 7 Jj Pradhan. [address], [place], [place], [address], [place]. tel:[phone] Referring Provider: Nimisha Gallardo OD, [address] [facility], [place], [address]. tel:[phone] [facility], [address], [place], [place], [address], [place] tel:[phone] SEC Adebay[place] Professional Post-Op (chief complaint) No Information 7 Jj Pradhan. [address] [facility], [address] [place], [address], [place]. tel:[phone] Referring Provider: Nimisha Gallardo OD, [address] [facility], [place], [address]. tel:[phone] [facility], [address], [place], [place], [address], [place] tel:[phone] SEC Adebay[place] Professional Post-Op (chief complaint) No Information 7 Brown Abigail. [address] [place], [address], [place]. tel:[phone] Referring Provider: Nimisha Gallardo OD, [address] [facility], [place], [address]. tel:[phone] [facility], [address], [place], [place], [id number], [place] tel:[phone] [facility] No Information 7 Jj Pradhan. [address] [facility], [address] [place], [address], [place]. tel:[phone] Referring Provider: Nimisha Gallardo OD, [address] [facility], [place], [address]. tel:[phone] [facility], [address], [place], [place], [address], [place] tel:[phone] SEC [facility] Dariusz No Information 7 Jj Pradhan. [address] [facility], [address] [place], [address], [place]. tel:[phone] [facility], [address], [place], [place], [address], tel:[phone] SEC [place] Professional Testing only (chief complaint) No Information 3 6 Jj Pradhan. [address] [employer] [address] [place], [place], [address], . tel:[phone] Referring Provider: Nimisha Gallardo OD, [address] [facility], [place], [address]. tel:[phone] Office/outpat ient Visit, [facility], [address], [place], [place], [address], tel:[phone] SEC Adebay[place] Professional Cataract evaluation (chief complaint) No Information 6 Jj Pradhan. [address] [employer] [facility] [place], [place], [address], [place]. tel:[phone] Referring Provider: Nimisha Gallardo OD, [address] [facility], [place], [address]. tel:[phone] [facility], [address] [facility] [address], [place], [place], [address], [place] tel:[phone] SEC Adebay[place] Professional No Information 6 Master Estevez. [address] [employer] [facility] [place], [place], [address], [place]. tel:[phone] Family History Family Member Type Diagnosis Age At Onset No Information Payers Payer name Insurance type Covered republican ID Authoriza tion(s) No Information Social History [...] Referral Referred To: YORDY BADILLO [address], [place], [id number] Ordered: Referrals: Ophthalmology. YORDY BADILLO. Evaluate and [...] t No Information Instructions Date Instruction Darcie Garciar allison Impression/Plan - 1 month s/p Phaco IOL OS:- Patient has healed well.- All post operative medications are finished.- Vision is good and IOP is stable.- Advised patient to call the office immediately with new onset of floaters, flashes or curtain vision loss.- Recommend patient return to Nimisha Gallardo OD for regularly scheduled visits. Follow up - Return t o Nimisha Gallardo OD for regularly scheduled visits Impression/Plan - On e week PO s/p Phaco with IOL OS:- IOL in good position; healing well.- Patient advised they no longer need to wear the shield over the eye at bedtime.- Medication instillation and post op instructions reviewed.- Patient will return in 3 weeks or sooner with problems. Follow up - Return to clinic as scheduled Impression/Plan - 1 day post op Phaco with PCIOL OS, discussed post op instructions and medication use. Return to clinic as scheduled Follow up - as scheduled Impression/Plan - 2 weeks s/p Phaco IOL+LRI OD:- Patient healing well.- Medication instillation reviewed with patient in detail.- Vision is good and IOP is stable.- Patient elects to proceed with OS CE as scheduled. Follow up - Proceed with OS CE a s scheduled Impression/Plan - On e week PO s/p Phaco with IOL+LRI OD:- IOL in good position; healing well.- Patient advised they no longer need to wear the shield over the eye at bedtime.- Medication instillation and post op instructions reviewed.- Patient will return in 3 weeks or sooner with problems. Follow up - Return to clinic as scheduled Impression/Plan - On e Day Post Op s/p Phaco with LRI OD. IOL OD in good position. Patient healing well. Medication instillation, shield use and restrictions reviewed with patient. Return to clinic as scheduled or sooner with problems. Impression/Plan - Pt here for repeat IOL [...] for distance Follow up - Schedule CE OD with Standard IOL set for distance + LRI followed by CE OS with Standard IOL set for distance Impression/Plan - Ca [...] MD on May 24 at 8:30am in [place]. 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
[2025-04-06 18:41] VITALS: BP 186/94; PULSE 56; RESP 16; TEMP 36.8; O2SAT 100
--- OUTSIDE RECORDS SUMMARY | 2025-04-06 18:42 | XMS_ITS | Patient Health Record ---
Author Organization [facility] Address [address] [place] [address] Care Team Providers Care Informatics Developer Name Role Phone Yordy Mitchell Primary Care Provider Haydee Aleman Unavailable [phone] Dottie ARMIJO, Yazan Unavailable Unavailable Reason For [...] Coverage End Date MEDICARE SERVICES [address] [address] [place] [address] [id number] Cristian Shields Self - patient is the insured
--- OUTSIDE RECORDS SUMMARY | 2025-04-06 18:42 | XMS_ITS | Encounter Summary ---
Author Organization [facility] Address [address] [place] [address] Care Team Providers Care Automatic Lathe Tender Name Role Phone Ying Banerjee MD Unavailable [phone] Sedrick Lynch MD Primary Care Provider [phone] Encounter Details Date Type Department Care Team (Late st Contact Info) Description 11/30/2022 Lab [facility] [address] [facility] [place] [address] Keo Cook MD [address] [place] [address] Social History Tobacco Use Types Packs/Day Years Used Date Smoking Tobacco: Never Smokeless Tobacco: Never Alcohol Use Standard Drinks/Week Comments Yes 0 (1 standard drink = 0.6 oz pur e alcohol) sometimes Sex and Gender Information Value Date Recorded Sex Assigned at Not on file 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 Gender Identity Not on file Sexual Orientation Not on file documented as of this encounter Plan of Treatment Not on file documented as of this encounter Procedures Procedure Name Priority Date/Time Associated Diagnosis Comments DERMATOPATHOLOGY Routine 11/29/2022 12:0 0 AM CDT documented in this encounter Results * DERMATOPATHOLOGY (11/29/2022 12:00 AM CDT) Case Report Dermatopathology Report Case: [id number] Authorizing Provider: Keo Cook MD Collected: 11/29/2022 12:00 AM Ordering Location: [facility] DermPath Lab Received: 11/30/2022 02:22 [...] specimen consists of a shave biopsy measuring [id number] mm. Jar 0. 4:54 PM CDT DERMATOPATHOLOGY [...] purposes. Billing Codes Specimen Charges Stain Charges [id number] 1 1 3 4:54 PM CDT DERMATOPATHOLOGY LABORATORY Embedded Images 3 4:54 PM CDT DERMATOPATHOLOGY LABORATORY Pathology/Cytology TISSUE SPECIMEN FROM SKIN / Unknown 11/29/2022 11/30/2022 2:22 PM CDT Miscellaneous samples (specimen) TISSUE SPECIMEN FROM SKIN / Unknown 11/29/2022 11/30/2022 2:22 PM CDT Keo Cook MD LAB - PATHOLOGY/CYTOLOGY ORD ERABLES Final Result DERMATOPATHOLOGY LABORATORY [facility] - Department of Dermatology [facility] Specialized Medicine [address] [place] [address], [address] [phone] documented in this encounter Visit Diagnoses Not on filedocumented in this encounter Care Teams Automatic Lathe Tender Relationship Specialty Start Date End Date Sedrick Lynch MD [address] [place] [address] PCP - General 06/12/18 [place] [address] [place] [address] Neurology 08/26/11 documented as of this encounter
--- OUTSIDE RECORDS SUMMARY | 2025-04-06 18:42 | XMS_ITS | Clinical Summary ---
Author Organization [facility] Address [address] [place] [address] Care Team Providers Care Grab Operator Name Role Phone Ying Banerjee MD Unavailable [phone] Sedrick Lynch MD Primary Care Provider [phone] Source Comments [facility],non-owned Affiliates and Associated Physician Practices is amultiple site organization consisting of ambulatory clinics and hospital sitesin [place], [place], [place] and [place]. This disclosure is being madepursuant to the Care Everywhere program and may not contain all information available regarding this patient. Last updated 18.[facility] Allergies Active Allergy Reactions Criticality Noted Date [...] on file Legal Sex Male 8:02 AM ELIGIBILITY COUNSELOR Gender Identity Not on file Sexual Orientation Not on file Last Filed Vital Signs Vital Sign Reading Time Taken Comments Blood Pressure 103/70 08/26/2011 9:06 AM CDT Pulse 56 07/29/2011 9:04 AM ELIGIBILITY COUNSELOR Temperature - - Respiratory Rate - - [...] age to complete this topic Insurance [facility] MEDICARE ADV [facility] MEDICARE ADV Care Teams Grab Operator Relationship Specialty Start Date End Date Sedrick Lynch MD [address] [place] [place] [address] PCP - General 06/12/18 Ying Banerjee MD [address] [place] [address] Neurology 08/26/11
--- OUTSIDE RECORDS SUMMARY | 2025-04-06 19:15 | XMS_ITS | Encounter Summary ---
Author Organization [facility] Healthcare Address [address] [place] [address] Care Team Providers Care Biomedical Analytical Scientist Name Role Phone Vipul Morgan MD Primary Care Provider [phone] Reason for Visit * Reason Comments Hypertension Noticed it about a w wainwright ago, Encounter Details Date Type Department Care Team (Late st Contact Info) Description 04/06/2025 7:15 PM MANAGER AIR Office Visit [facility]ient [facility] at [address] [address] Katy Baker PA [address] [place] [address] [address] [place] [address] Hypertensive urgency (Primary Dx) Social History Tobacco Use Types Packs/Day Years Used Date Smoking Tobacco: Former Smokeless Tobacco: Never Comments:smoked for four yea rs Alcohol Use Standard Drinks/Week Comments Yes 5 (1 standard drink = 0.6 oz pur e alcohol) AUDIT-C Answer Date Recorded Q1: How often do you have a drink containing alcohol? 4 or more times a week 04/01/2025 Average Number of Drinks Not on file 025 Frequency of Binge Drinking Not on file 03/06 Sex and Gender Information Value Date Recorded Sex Assigned at Not on file Legal Sex Male 8:40 AM MANAGER AIR Gender Identity Not on file Sexual Orientation Not on file documented as of this encounter Last Filed Vital Signs Vital Sign Reading Time Taken Comments Blood Pressure 198/102 04/06/2025 5:35 PM MANAGER AIR Pulse 58 04/06/2025 5:35 PM MANAGER AIR Temperature 36.7 C (98 F) 04/06/2025 5:35 PM MANAGER AIR Respiratory Rate 18 04/06/2025 5:35 PM MANAGER AIR Oxygen Saturation 99% 04/06/2025 5:35 PM MANAGER AIR Inhaled Oxygen Concentration - - Weight 86.6 kg (191 lb) 04/06/2025 5:35 PM MANAGER AIR Height 185.4 cm (6' 0.99) 04/06/2025 5:35 PM CS T Body Mass Index 25.2 04/06/2025 5:35 PM MANAGER AIR documented in this encounter Plan of Treatment Not on file documented as of this encounter Goals Goal Patient Goal Type Associated Problems Recent Progress Patient-Stated? Author [facility] Fall Prevention Care Plan Chronic Care Management No Ysabel Thomas, RN Note: Problem: Falls Goals: 1. Maintain strength and balance as able 2. Prevent falls and fractures 3. Maximize safety of living environment Strategies: - Educate on fall prevention and follow-up as needed - Recommend activity/exercise program - Refer to allied health as needed - Recommend healthy lifestyle strategies and compensatory methods as needed [facility] Chronic Pain Care Plan Chronic Care Management No Ysabel Thomas, RN Note: Problem: Chronic Pain Goals: 1. Minimize further functional decline 2. Maximize quality of life 3. Control pain Strategies: - Activity/exercise program recommendation - Conservative stepwise pain medicine strategy with multi-disciplinary approach - Recommend healthy lifestyle strategies and compensatory methods as needed documented as of this encounter Visit Diagnoses Diagnosis Hypertensive urgency- Primary documented in this encounter Care Teams Biomedical Analytical Scientist Relationship Specialty Start Date End Date Vipul Morgan MD PCP - General Family Medicine 10/18/22 documented as of this encounter
--- OUTSIDE RECORDS SUMMARY | 2025-04-06 19:15 | XMS_ITS | Encounter Summary ---
Author Organization [facility] Address [address] [place] [address] Care Team Providers Care Press Smith Helper Name Role Phone Vipul Morgan MD Primary Care Provider [phone] Reason for Visit * Reason Comments Hypertension Noticed it about a w lumbee ago, Encounter Details Date Type Department Care Team (Late st Contact Info) Description 04/06/2025 7:15 PM DRAW PRESS OPERATOR Office Visit [facility] Medical Group Convenient Care at [address] [address] Katy Baker PA [address] [place] [address] [address] [place] [address] Hypertensive urgency (Primary Dx) Social [...] on file Legal Sex Male 8:40 AM DRAW PRESS OPERATOR Gender Identity Not on file Sexual Orientation Not on file documented as of this encounter Last Filed Vital Signs Vital Sign Reading Time Taken Comments Blood Pressure 198/102 04/06/2025 5:35 PM DRAW PRESS OPERATOR Pulse 58 04/06/2025 5:35 PM DRAW PRESS OPERATOR Temperature 36.7 C (98 F) 04/06/2025 5:35 PM DRAW PRESS OPERATOR Respiratory Rate 18 04/06/2025 5:35 PM DRAW PRESS OPERATOR Oxygen Saturation 99% 04/06/2025 5:35 PM DRAW PRESS OPERATOR Inhaled Oxygen Concentration - - Weight 86.6 kg (191 lb) 04/06/2025 5:35 PM DRAW PRESS OPERATOR Height 185.4 cm (6' 0.99) 04/06/2025 5:35 PM CS T Body Mass Index 25.2 04/06/2025 5:35 PM DRAW PRESS OPERATOR documented in this encounter Plan of Treatment Not on file documented as of this encounter Goals Goal Patient Goal Type Associated Problems Recent Progress Patient-Stated? Author [facility] Fall Prevention Care Plan Chronic Care [...] lifestyle strategies and compensatory methods as needed [facility] Chronic Pain Care Plan Chronic Care [...] Primary documented in this encounter Care Teams Press Smith Helper Relationship Specialty Start Date End Date Vipul Morgan MD PCP - General Family Medicine 10/18/22 documented as of this encounter
[2025-04-06 20:49] VITALS: BP 197/108; PULSE 63; RESP 20; O2SAT 97
--- OUTSIDE RECORDS SUMMARY | 2025-04-06 21:04 | XMS_ITS | Clinical Summary ---
Author Organization [facility] Address [address] [place] [address] Care Team Providers Care E Business Manager Name Role Phone Ying Banerjee MD Unavailable [phone] Sedrick Lynch MD Primary Care Provider [phone] Source Comments [facility],non-owned Affiliates and Associated Physician Practices is amultiple site organization consisting of ambulatory clinics and hospital sitesin [place], [place], [place] and [place]. This disclosure is being madepursuant to the Care Everywhere program and may not contain all information available regarding this patient. Last updated 18.[facility] Allergies Active Allergy Reactions Criticality Noted Date [...] on file Legal Sex Male 8:02 AM ORACLE FUSION CONSULTANT Gender Identity Not on file Sexual Orientation Not on file Last Filed Vital Signs Vital Sign Reading Time Taken Comments Blood Pressure 103/70 08/26/2011 9:06 AM CDT Pulse 56 07/29/2011 9:04 AM ORACLE FUSION CONSULTANT Temperature - - Respiratory Rate - - [...] age to complete this topic Insurance [facility] MEDICARE ADV [facility] MEDICARE ADV Care Teams E Business Manager Relationship Specialty Start Date End Date Sedrick Lynch MD [place] [address] PCP - General 06/12/18 iYng Banerjee MD [address] [place] [address] Neurology 08/26/11
--- OUTSIDE RECORDS SUMMARY | 2025-04-06 21:04 | XMS_ITS | Encounter Summary ---
Author Organization [facility] Address [address] [facility] [place] [address] Care Team Providers Care Casting House Worker Name Role Phone Ying Banerjee MD Unavailable [phone] Sedrick Lynch MD Primary Care Provider [phone] Encounter Details Date Type Department Care Team (Late st Contact Info) Description 11/30/2022 Lab [facility] Lab [address] [facility] [place] [address] Keo Cook MD [address] [place] [address] Social History Tobacco Use Types Packs/Day Years Used Date Smoking Tobacco: Never Smokeless Tobacco: Never Alcohol Use Standard Drinks/Week Comments Yes 0 (1 standard drink = 0.6 oz pur e alcohol) sometimes Sex and Gender Information Value Date Recorded Sex Assigned at Not on file 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 Gender Identity Not on file Sexual Orientation Not on file documented as of this encounter Plan of Treatment Not on file documented as of this encounter Procedures Procedure Name Priority Date/Time Associated Diagnosis Comments DERMATOPATHOLOGY Routine 11/29/2022 12:0 0 AM CDT documented in this encounter Results * DERMATOPATHOLOGY (11/29/2022 12:00 AM CDT) Case Report Dermatopathology Report Case: [id number] Authorizing Provider: Keo Cook MD Collected: 11/29/2022 12:00 AM Ordering Location: [facility] DermPath Lab Received: 11/30/2022 02:22 [...] specimen consists of a shave biopsy measuring [id number] mm. Jar 0. 4:54 PM CDT DERMATOPATHOLOGY [...] characteristic determined by the Dermatopathology Laboratory at [facility], directed by Dr. Stephie Carlos. These tests need not be, and therefore are not, approved by the [place] Food and Drug Administration. The tests are used for clinical purposes. Billing Codes Specimen Charges Stain Charges [id number] 1 1 3 4:54 PM CDT DERMATOPATHOLOGY LABORATORY Embedded Images 3 4:54 PM CDT DERMATOPATHOLOGY LABORATORY Pathology/Cytology TISSUE SPECIMEN FROM SKIN / Unknown 11/29/2022 11/30/2022 2:22 PM CDT Miscellaneous samples (specimen) TISSUE SPECIMEN FROM SKIN / Unknown 11/29/2022 11/30/2022 2:22 PM CDT Keo Cook MD LAB - PATHOLOGY/CYTOLOGY ORD ERABLES Final Result DERMATOPATHOLOGY LABORATORY [facility] - Department of Dermatology [facility] Specialized Medicine [address] [place] [address], [address] [phone] documented in this encounter Visit Diagnoses Not on filedocumented in this encounter Care Teams Casting House Worker Relationship Specialty Start Date End Date Sedrick Lynch MD [address] [place] [address] PCP - General 06/12/18 [place] [address] [place] [address] Neurology 08/26/11 documented as of this encounter
--- NOTE | 2025-04-06 21:19 | ECG_ITS ---
Test Date: 2025-04-06 21:40:34 Measurements Intervals Prentice Rate: 53 P: 0 [place]: 0 QRS: 5 QRSD: 98 T: 38 QT: 394 QTc: 371 Interpretive Statements sinus bradycardia with pacs POSSIBLE INFERIOR MYOCARDIAL INFARCTION , PROBABLY OLD [30 ms Q WAVE IN II/aVF] ANTEROSEPTAL MYOCARDIAL INFARCTION , PROBABLY RECENT [40+ ms Q WAVE IN V1-V4] ACUTE MD No previous ECG available for comparison Electronically Signed On 04-07-2025 06:40:24 SHIPPING AND RECEIVING SUPERVISOR by Terrance Ewing M.D.
--- NOTE | 2025-04-06 21:20 | ED.RECABL ---
HPI - Recheck/Abnormal Lab/Rx General Chief Complaint: Recheck/Abnormal Lab/Rx Stated Complaint: htn Time Seen by Provider: 04/06/25 20:31 History of Present Illness HPI narrative: Patient is an 89-year-old male who presents to the ER with concerns of high blood pressure. He reports he was made aware of his high blood pressure when he went in for a steroid injection last week. Patient endorses a history of a heart attack and high blood pressure. He reports he takes irbesartan and propranolol for his high blood pressure. Patient denies any recent headache, chest pressure, visual changes, lower extremity swelling, shortness of breath, numbness/tingling is his extremities. Related Data Allergies Allergy/AdvReac Type Severity Reaction Status Date / Time ciprofloxacin Allergy Intermediate FACIAL Verified 04/06/25 20:54 SWELLING AND HIVES shellfish derived Allergy Intermediate HIVES AND Verified 04/06/25 20:54 FACIAL SWELLING iodine Allergy Unknown Swelling Verified 04/06/25 20:54 Sulfa (Sulfonamide Allergy Unknown Unknown Verified 04/06/25 20:54 Antibiotics) codeine AdvReac Unknown HIVES AND Verified 04/06/25 20:54 NAUSEA Review of Systems Review of Systems: All systems reviewed & are unremarkable except as noted in HPI and below PMFSH Past Medical History Medical History Closed compression fracture of lumbar vertebra Hypothyroidism Erectile dysfunction Essential tremor CKD (chronic kidney disease) Lumbar disc disease Surgical History Surgical History History of surgical removal of skin lesion 2022 Family History Family History Mother Patient's mother is , Onset Age: 100 Father Patient's father is Family history of cardiovascular disease Acute myocardial infarction, Onset Age: 57 Sibling Patient's brother is in good health Social History Social History Smoking status: Former smoker Second hand tobacco smoke exposure: No Smoking end date: 06/05/1965 Alcohol intake: current Drinks per week: 6 Alcohol use details: glasses of wine with dinner Substance use: never Substance use type: does not use Do You Feel Safe in your Home?: Yes Lack of Transportation: No Lack of Food: Never True Current Housing: I Have Housing Concerned About Future Housing: No Difficulty Paying Gas/Electric Bills: No Difficulty Paying for Meds: No Currently Unemployed: No Education: Master's Degree or Higher Difficulty w/ Childcare or Family Care: No Living arrangements: with family Occupation/Education: retired Exam Narrative: GENERAL: Well appearing, well-nourished, non-toxic, in no acute distress. HEAD: Normocephalic, atraumatic. NECK: Supple. No adenopathy, no masses. RESPIRATORY: Airway patent, respirations nonlabored. Clear to auscultation bilaterally, no rales, rhonchi, wheezing. CARDIOVASCULAR: Regular rate and rhythm without murmurs, rubs, or gallops. Peripheral pulses 2+ and equal bilaterally. ABDOMINAL: Soft, nontender, nondistended, no hepatosplenomegaly. Normoactive BS. MUSCULOSKELETAL: Moves all extremities. Strength/ROM intact without gross deformities. SKIN: Warm, dry, normal color. No rashes. NEURO: A&O X3. Speech clear. Cranial nerves II-XII intact. No ataxic movements. PSYCHIATRIC: Appropriate mood and affect. Normal interaction. Course Vital Signs Vital signs: Vital Signs Temperature 36.8 C 04/06/25 18:41 Pulse Rate 56 L 04/06/25 18:41 Respiratory Rate 16 04/06/25 18:41 Blood Pressure 186/94 H 04/06/25 18:41 Pulse Oximetry 100 04/06/25 18:41 Oxygen Delivery Room Air 04/06/25 18:41 Temperature 36.8 C 04/06/25 18:41 Pulse Rate 65 04/06/25 22:01 Respiratory Rate 20 04/06/25 22:01 Blood Pressure 144/73 H 04/06/25 22:01 Pulse Oximetry 100 04/06/25 22:01 Oxygen Delivery Room Air 04/06/25 18:41 MDM - Recheck/Abnormal Lab/Rx MDM Narrative Medical decision making narrative: Patient is an 89-year-old male who presents to the ER with concerns of high blood pressure. He reports he was made aware of his high blood pressure when he went in for a steroid injection last week. Patient endorses a history of a heart attack and high blood pressure. He reports he takes irbesartan and propranolol for his high blood pressure. Patient denies any recent headache, chest pressure, visual changes, lower extremity swelling, shortness of breath, numbness/tingling is his extremities. Patient Education/Shared MDM: Patient's blood pressure decreased nicely with hydralazine IV administration. Following administration he is consistent running in the 140s over 70s. Patient strongly advised to continue taking his home prescription and follow-up with his PCP as soon as possible. He will be discharged home with any new prescriptions. Strict return precautions provided. Patient verbalized understanding and is in agreement with plan. Vital signs stable at time of discharge. All questions answered. Differential Diagnosis Differential diagnosis: Likely other (Hypertension, EKG changes, STEMI) Discharge Plan Discharge Clinical Impression: High blood pressure, Elevated systolic blood pressure reading with diagnosis of hypertension Patient Disposition: Home Condition: Stable Instructions: Antibiotic Form, Hypertensive Crisis (ED) Additional Instructions: Please return to the ER with any worsening symptoms. Follow-up with primary care provider as soon as possible for further evaluation and treatment. Take all medications as prescribed, including regularly scheduled medications. If you notice visual changes, headache, lower extremity swelling, shortness of breath or chest plain please return to the ER immediately. Patient Language: Nigerien Prescriptions: No Action diazepam [Valium] 5 mg tablet 5 mg PO BID PRN (Reason: anxiety) Qty: 14 1RF hydrocodone-chlorpheniramine 10-8 mg/5 mL suspension,extended rel 12 hr 5 ml PO Q12H PRN (Reason: cough) Qty: 115 0RF propranolol 80 mg capsule,extended release 24 hr See Rx Instructions .ROUTE .COMPLEX Qty: 90 1RF Dose Instruction: TAKE ONE CAPSULE BY MOUTH ONCE DAILY Rx Instructions: TAKE ONE CAPSULE BY MOUTH ONCE DAILY irbesartan 150 mg tablet 150 mg PO DAILY Qty: 90 1RF ezetimibe-simvastatin [Vytorin 10-40] 10-40 mg tablet 1 tablet PO DAILY Qty: 90 1RF levothyroxine 50 mcg tablet 50 mcg PO DAILY Qty: 90 1RF Follow-up/Referrals: Vipul Lucero MD [Physician, Cardiology] Vipul Morgan MD [Primary Care Provider, Family Practice] Time of Disposition: 22:29
[2025-04-06 21:36] VITALS: BP 180/99; PULSE 55; RESP 17; O2SAT 98
--- NOTE | 2025-04-06 21:46 | ECG_ITS ---
Test Date: 2025-04-06 21:49:03 Measurements Intervals [place] Rate: 53 P: -69 RI: 124 QRS: 6 QRSD: 101 T: 40 QT: 384 QTc: 362 Interpretive Statements SINUS BRADYCARDIA Poor R wave progression Electronically Signed On 04-07-2025 06:40:53 GRAPHIC DESIGN PROFESSOR by Terrance Ewing M.D.
[2025-04-06 22:01] VITALS: BP 144/73; PULSE 65; RESP 20; O2SAT 100
--- NOTE | 2025-04-06 22:02 | ECG_ITS ---
Test Date: 2025-04-06 22:06:07 Measurements Intervals [place] Rate: 64 P: 77 MS: 180 QRS: 25 QRSD: 98 T: 47 QT: 367 QTc: 381 Interpretive Statements SINUS RHYTHM WITH MARKED SINUS ARRHYTHMIA ANTERIOR MYOCARDIAL INFARCTION , OF INDETERMINATE AGE [40+ ms Q WAVE AND/OR ST/T ABNORMALITY IN V3/V4] POSSIBLE INFERIOR MYOCARDIAL INFARCTION , OF INDETERMINATE AGE [30 ms Q WAVE IN II/aVF] Compared to ECG 04/06/2025 21:49:03 No significant changes Electronically Signed On 04-07-2025 06:41:12 PONY RIDE OPERATOR by Terrance Ewing M.D.
[2025-04-06 22:35] VITALS: BP 151/73; PULSE 65; RESP 18; O2SAT 97
== END 2025-04-06 22:57 | disposition home or self-care (01) ==
PROVIDERS: Emergency Provider Registered Nurse; PCP Family Medicine
DX: I12.9 Hypertensive chronic kidney disease with stage 1 through stage 4 chronic kidney disease, or unspecified chronic kidney disease (principal); N18.9 Chronic kidney disease, unspecified; I25.2 Old myocardial infarction; E03.9 Hypothyroidism, unspecified; Z87.891 Personal history of nicotine dependence; Z79.899 Other long term (current) drug therapy; R00.1 Bradycardia, unspecified; R94.31 Abnormal electrocardiogram [ECG] [EKG]
CPT/HCPCS: 93005; 96374; 99284; J0360